=== PATIENT | male | born 1975 | race Two or more races ===

== ENCOUNTER 2023-05-19 07:47 | Outpatient (REF) | payer OTHER, SELFPAY ==
[2023-05-19 08:08] LABS: MANUAL DIFF FLAG NO
[2023-05-19 08:23] LABS: Basophils Percent Auto 0.2 % (0-2); Eosinophils Absolute Auto 0.2 X10*3/uL (0.0-0.4); Eosinophils Percent Auto 1.4 % (0-4); Hematocrit 40.7 % (42.0-52.0); Hemoglobin 13.1 g/dl (14.0-18.0); Imm Gran Abs Auto 0.06 X10*3/uL (0.00-0.03); Imm Gran Pct Auto 0.6 % (0.0-0.4); Lymphocytes Absolute Auto 2.7 X10*3/uL (1.2-4.9); Lymphocytes Percent Auto 26.1 % (20-40); Mean Corpuscular HGB Conc 32.2 g/dl (31.0-36.0); Mean Corpuscular Hemoglobin 27.3 pg (27.0-33.0); Mean Corpuscular Volume 84.8 fL (80.0-98.0); Mean Platelet Volume 9.4 fL (9.4-12.4); Monocytes Absolute Auto 0.6 X10*3/uL (0.1-1.2); Monocytes Percent Auto 5.9 % (2-11); Neutrophils Absolute Auto 6.9 x10*3/uL (2.0-8.3); Neutrophils Percent Auto 65.8 % (45-73); Platelet Count 303 X10*3/uL (160-400); Red Cell Distribution Width 14.8 % (11.0-16.0); White Blood Count 10.5 X10*3/uL (4.8-10.8)
[2023-05-19 09:29] LABS: Alanine Aminotransferase 15 U/L (0-40); Albumin Level 4.1 g/dL (3.5-5.0); Alkaline Phosphatase 114 U/L (39-117); Anion Gap 11 (12-20); Aspartate Amino Transferase 15 U/L (5-37); Bilirubin Total 0.3 mg/dL (0.0-1.0); Blood Urea Nitrogen 13 mg/dL (9-16); Calcium 9.1 mg/dL (8.4-10.2); Carbon Dioxide 29 mmol/L (22-29); Chloride 103 mmol/L (96-108); Estimated Glomerular Filt Rate > 60; Glucose Random 136 mg/dL (60-115); Potassium 4.3 mmol/L (3.3-5.1); Sodium 139 mmol/L (135-145); Total Protein 7.6 g/dL (6.5-8.0)
[2023-05-24 05:43] LABS: Clozapine (Clozaril) 347 mcg/L; Norclozapine 188 mcg/L (25-400)
== END 2023-05-19 07:48 | disposition home or self-care (01) ==
LOC: HO.LAB 07:47
PROVIDERS: Visit Provider Nurse Practitioner Psychiatric/Mental Health
DX: Z79.899 Other long term (current) drug therapy (principal)
CPT/HCPCS: 36415; 80053; 80159; 85025

== ENCOUNTER 2023-05-24 19:32 | Inpatient (IN) | payer OTHER, SELFPAY ==
--- NOTE | 2023-05-24 15:56 | P.EN_ITS ---
Event Note Date of Service: 05/24/23 Event Note: In [facility] ED, Pt had EKG with QTC 510, RBBB, left anterior fasicular block and bifasicular block; troponins were 5pg?ml (flat). discussed case with Dr snyder; discused ekg and troponins with Dr Munoz from cardiology. T/C [facility] ED Dr. Isis Jordan who stated pt had chest pain upon admission adn stated he was anxious; troponins and ekg done . no further cardiac symptoms; no SOB, chest pain and vitals were stable. Pt okay for psyc [facility] admission - will include CMP with Mg and repeat EKG for 418 am Time Spent With Patient Time: Total time managing care of this patient today ____ minutes.
[2023-05-24 20:00] VITALS: BP 138/82; PULSE 83; RESP 16; TEMP 36.6; O2SAT 95
[2023-05-24 21:45] VITALS: BP 122/72; PULSE 80
[2023-05-24] MEDS: Propranolol HCL 20 MG TABLET PO (21:45)
[2023-05-24] MEDS: cloZAPine 100 MG TABLET 300 MG PO (21:47)
[2023-05-24] MEDS: HaloperidoL 1 MG TABLET 4 MG PO (21:47)
[2023-05-24] MEDS: cephALEXin 500 MG CAPSULE PO (21:48)
[2023-05-24] MEDS: metFORMIN HCl ER 500 MG TAB.ER.24H 1000 MG PO (21:48)
[2023-05-24] MEDS: Benztropine Mesylate 0.5 MG TABLET PO (21:48)
[2023-05-24] MEDS: Atorvastatin Calcium 10 MG TABLET PO (21:49)
[2023-05-24 22:05] VITALS: BMI 41.2
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
--- NOTE | 2023-05-25 | ECG_ITS ---
Test Reason : check qtc Blood Pressure : / mmHG Vent. Rate : 083 BPM Atrial Rate : 083 BPM P-R Int : 152 ms QRS Dur : 154 ms QT Int : 404 ms P-R-T Axes : 041 -56 030 degrees QTc Int : 474 ms Normal sinus rhythm Right bundle branch block Left anterior fascicular block Bifascicular block Abnormal ECG When compared with ECG of 15-DEC-2018 12:46, (RBBB and left anterior fascicular block) has replaced Incomplete right bundle branch block - there is also artifact in prior EKG Referred By: Gregory Mg Electronically Signed By:SILVIA STUBBS
--- NOTE | 2023-05-25 00:24 | PC.ADMIT ---
Arcenio Garcia is a 47 yo male, admitted to M3 unit from [facility] on CV for treatment of SI and Schizoaffective disorder. He reports feeling anxious and has intrusive thoughts about hurting himself, denies any plan. He has medical history of HTN, Diabetes and GERD. Arcenio Garcia is A&O X4, calm and pleasant on approach. He denies SI/HI/AVH, affect is flat and mood is depressed. Patient denies using any substances, but TOX screen shows positive to Cocaine and THC. He states that I have have been sober and stop using drugs since when I was 18 yo . He reports being homeless for now d/t no bed in sober house after been d/c from respite on Monday. He was seen by the hospitalist but was sleeping, hence the hospitalist will come back tomorrow morning. Skin check done, Vital signs was stable and some release of information forms signed. Treatment plan and safety tools initiated but yet to be signed.
[2023-05-25] MEDS: HaloperidoL 1 MG TABLET 2 MG PO (06:36)
[2023-05-25 07:00] VITALS: BMI 40.6
[2023-05-25 08:00] VITALS: BP 112/58; PULSE 85; RESP 14; RESP 18; TEMP 36.3; TEMP 36.8; O2SAT 94
[2023-05-25] MEDS: metFORMIN HCl ER 500 MG TAB.ER.24H 1000 MG PO ×2 (09:02→20:34)
[2023-05-25] MEDS: glipiZIDE XL 10 MG TAB.ER.24 PO ×2 (09:02→18:00)
[2023-05-25] MEDS: Sertraline HCL 100 MG TABLET PO (09:02)
[2023-05-25] MEDS: Benztropine Mesylate 0.5 MG TABLET PO ×2 (09:03→20:34)
[2023-05-25] MEDS: Propranolol HCL 20 MG TABLET PO ×2 (09:03→20:34)
[2023-05-25] MEDS: cephALEXin 500 MG CAPSULE PO ×3 (09:03→20:34)
[2023-05-25 10:59] LABS: Neut%MD 66.8 %; Neutrophils Absolute Auto 6.8 x10*3/uL (2.0-8.3); WBCANC 10.2 X10*3/uL
[2023-05-25 11:21] LABS: Alanine Aminotransferase 19 U/L (0-40); Albumin Level 4.1 g/dL (3.5-5.0); Alkaline Phosphatase 110 U/L (39-117); Anion Gap 13 (12-20); Aspartate Amino Transferase 15 U/L (5-37); Bilirubin Direct 0.1 mg/dL (0.0-0.5); Bilirubin Total 0.3 mg/dL (0.0-1.0); Blood Urea Nitrogen 15 mg/dL (9-16); Calcium 9.6 mg/dL (8.4-10.2); Carbon Dioxide 26 mmol/L (22-29); Chloride 105 mmol/L (96-108); Creatinine Clr Calc Pharmacy 126.6; Estimated Glomerular Filt Rate > 60; Glucose Fasting 199 mg/dL (60-99); Magnesium 1.8 mg/dL (1.6-2.6); Potassium 4.2 mmol/L (3.3-5.1); Sodium 140 mmol/L (135-145); Total Protein 7.5 g/dL (6.5-8.0)
[2023-05-25 11:26] LABS: Estimated Average Glucose 154 mg/dL
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
[2023-05-25 19:45] VITALS: BP 121/61; PULSE 86; RESP 16; TEMP 36.8; O2SAT 93
[2023-05-25 20:00] VITALS: BP 121/61; PULSE 86; RESP 16; TEMP 36.8; O2SAT 93
[2023-05-25] MEDS: HaloperidoL 1 MG TABLET 4 MG PO (20:33)
[2023-05-25] MEDS: cloZAPine 100 MG TABLET 300 MG PO (20:33)
[2023-05-25 20:34] VITALS: BP 121/61; PULSE 86
[2023-05-25] MEDS: Atorvastatin Calcium 10 MG TABLET PO (20:34)
[2023-05-25 21:38] LABS: Glucose, Whole Blood 219 mg/dL (60-115)
[2023-05-26] MEDS: cephALEXin 500 MG CAPSULE PO ×4 (03:35→21:11)
[2023-05-26] MEDS: HaloperidoL 1 MG TABLET 2 MG PO (06:29)
[2023-05-26 08:05] VITALS: BP 169/121; PULSE 88; RESP 18; TEMP 36.6; O2SAT 95
[2023-05-26 08:28] LABS: Glucose, Whole Blood 99 mg/dL (60-115)
[2023-05-26 08:41] VITALS: BP 115/68; PULSE 78; RESP 16; O2SAT 97
[2023-05-26] MEDS: Benztropine Mesylate 0.5 MG TABLET PO ×2 (08:42→21:11)
[2023-05-26] MEDS: metFORMIN HCl ER 500 MG TAB.ER.24H 1000 MG PO ×2 (08:42→21:11)
[2023-05-26 08:43] VITALS: BP 115/68; PULSE 78
[2023-05-26] MEDS: Propranolol HCL 20 MG TABLET PO ×2 (08:43→21:11)
[2023-05-26] MEDS: Sertraline HCL 100 MG TABLET PO (08:44)
[2023-05-26] MEDS: glipiZIDE XL 10 MG TAB.ER.24 PO ×2 (08:45→17:32)
--- NOTE | 2023-05-26 10:09 | P.PNPSI_ITS ---
Subjective Subjective Date of Service: 05/26/23 Reason For Visit: psychosis Subjective Notes: 3 Day Healthcare Proxy: No Guardianship: No Medical Problems Affecting Mental Status: No Interim History: 47-year-old male with a PMH significant for?HTN, HLD, tcv-tvkbzzp-wxlwcyccp type 2 diabetes, and schizoaffective disorder who is admitted to M3 psychiatry unit for increasing anxiety and depression with vague SI. Patient apparently was discharged earlier from respite on 05/19/2023. First attempted to go to a sober house but there was no room for him. Since then has been on the streets. A Pt signed 3 day notice and wants to leave; he is under the impression that a respite has a bed for him. he reports SI upon admission but able to contract for safety and feel safe on unit; no HI; no aggression; he denies voices. Medication Compliance: Yes Side effects from medications: No Attending Groups: Yes Review of Systems Acute medical concerns: No Medical Review of Systems: unchanged Review of Systems Review of Systems Patient has no acute medical complaints Mental Status Exam Mental Status Exam Patient Appearance: Appropriate Patient Orientation: Person, Place and Time Level of Consciousness: Awake Patient Behavior: Appropriate Mood Description: Withdrawn Affect Description: Constricted Patient Cognition Impaired: Yes Ability to Follow Directions: Fair Speech Pattern: Clear Judgement: Fair Diagnostics Vital Signs (24Hr): Vital Signs - 24 hr 05/25/23 19:45 05/25/23 20:00 05/25/23 20:34 Temperature 98.3 F 98.3 F Pulse Rate 86 86 86 Respiratory Rate 16 16 Blood Pressure 121/61 121/61 121/61 Pulse Oximetry 93 93 Oxygen Delivery Method Room Air Room Air 05/26/23 08:05 05/26/23 08:41 05/26/23 08:43 Temperature 97.9 F Pulse Rate 88 78 78 Respiratory Rate 18 16 Blood Pressure 169/121 H 115/68 115/68 Pulse Oximetry 95 97 Oxygen Delivery Method Room Air Room Air BMI result Body Mass Index 40.6 Labs 05/25/23 10:42 Labs: Laboratory Results - last 48 hr 05/25/23 05/25/23 05/26/23 10:42 21:32 08:24 Absolute Neuts (auto) 6.8 Sodium 140 Potassium 4.2 Chloride 105 Carbon Dioxide 26 Anion Gap 13 BUN 15 Creatinine 0.80 Estim Creat Clear Calc 126.6 Estimated GFR > 60 POC Glucose 219 H 99 Fasting Glucose 199 H Estimat Average Glucose 154 Hemoglobin A1c % 7.0 H Calcium 9.6 Magnesium 1.8 Total Bilirubin 0.3 Direct Bilirubin 0.1 AST 15 ALT 19 Alkaline Phosphatase 110 Total Protein 7.5 Albumin 4.1 Medications Medications Current Medications Acetaminophen (Acetaminophen 325 Mg Tablet) 650 mg PO Q6H PRN PRN Reason: Headache/Pain Mild Scale (1-3) Al Hydroxide/Mg Hydroxide (Magnesium Hydrox/Alum Hydrox 30 Ml Oral.Susp) 30 ml PO Q6H PRN PRN Reason: Heartburn/Nausea Atorvastatin Calcium (Atorvastatin Calcium 10 Mg Tablet) 10 mg PO BEDTIME [facility] Last Admin: 05/25/23 20:34 Dose: 10 mg Benztropine Mesylate (Benztropine Mesylate 0.5 Mg Tablet) 0.5 mg PO BID [facility] Last Admin: 05/26/23 08:42 Dose: 0.5 mg Cephalexin HCl (Cephalexin 500 Mg Capsule) 500 mg PO Q6H [facility] Stop: 05/29/23 13:00 Last Admin: 05/26/23 08:44 Dose: 500 mg Clozapine (Clozapine 100 Mg Tablet) 300 mg PO BEDTIME [facility] Last Admin: 05/25/23 20:33 Dose: 300 mg Glipizide (Glipizide Xl 10 Mg Tab.Er.24) 10 mg PO BIDWM [facility] Last Admin: 05/26/23 08:45 Dose: 10 mg Haloperidol (Haloperidol 1 Mg Tablet) 4 mg PO BEDTIME [facility] Last Admin: 05/25/23 20:33 Dose: 4 mg Haloperidol (Haloperidol 1 Mg Tablet) 2 mg PO DAILY@0600 [facility] Last Admin: 05/26/23 06:29 Dose: 2 mg Magnesium Hydroxide (Milk Of Magnesia 30 Ml Oral.Susp) 30 ml PO DAILY PRN PRN Reason: Constipation Metformin HCl (Metformin Hcl Er 500 Mg Tab.Er.24h) 1,000 mg PO BID [facility] Last Admin: 05/26/23 08:42 Dose: 1,000 mg Propranolol HCl (Propranolol Hcl 20 Mg Tablet) 20 mg PO BID [facility]; Protocol Last Admin: 05/26/23 08:43 Dose: 20 mg Sertraline HCl (Sertraline Hcl 100 Mg Tablet) 100 mg PO DAILY [facility] Last Admin: 05/26/23 08:44 Dose: 100 mg Trazodone HCl (Trazodone Hcl 50 Mg Tablet) 50 mg PO BEDTIME MRX1 PRN PRN Reason: Insomnia Allergies Allergies Allergy/AdvReac Type Severity Reaction Status Date / Time No Known Allergies Allergy Unverified 10/24/19 19:30 [No Known Allergies*] Assessment & Plan Assessment & Plan (1) Schizophrenia: Qualifiers: Schizophrenia type: disorganized schizophrenia Qualified Code(s): F20.1 - Disorganized schizophrenia Status: Acute Code(s): F20.9 - Schizophrenia, unspecified Plan Pt is a 47-year-old male with a PMH significant for?HTN, HLD, hep-lkibqmt-ttywdwdac type 2 diabetes, and schizoaffective disorder who is admitted to psychiatry unit for increasing anxiety and depression with vague SI. Patient apparently was discharged earlier from respite on 05/19/2023. First attempted to go to a sober house but there was no room for him. Since then has been on the streets. At [facility] ED patient complained of chest tightness and difficulty breathing, the workup there was negative. EKG showed new RBBB but no ischemic changes. Serial troponins flat and WNL. Patient's UA came back positive for UTI, and was started on Keflex on 05/22/2023. Plan: pt signed 3 day notice up on Monday 15 min checks continue home meds clozaril protocol collateral info discharge planning with team Per medical Hospital consult : UTI Continue Keflex HTN Continue propranolol HLD Continue atorvastatin Pri-ywvhxhe-jofgxkiow type 2 diabetes Continue metformin, glipizide Encouraged diabetic diet and snacking New RBBB Pt asymptomatic, serial troponins flat and WNL, EKG without ischemic changes No further workup indicated at this time Follow-up outpatient PCP Patient educated on: diagnosis, medication risk/benefits and therapeutic strategies Informed Consent: understands and further education needed Reason for continued inpatient stay Substantial Risk for: inability to function Time Spent With Patient Time: Total time managing care of this patient today ____ minutes.
[2023-05-26 21:00] VITALS: BP 121/60; PULSE 95; RESP 14; TEMP 36.9; O2SAT 96
[2023-05-26] MEDS: cloZAPine 100 MG TABLET 300 MG PO (21:09)
[2023-05-26] MEDS: HaloperidoL 1 MG TABLET 4 MG PO (21:10)
[2023-05-26] MEDS: Atorvastatin Calcium 10 MG TABLET PO (21:10)
[2023-05-26 21:16] LABS: Glucose, Whole Blood 262 mg/dL (60-115)
[2023-05-27] MEDS: cephALEXin 500 MG CAPSULE PO ×4 (03:37→20:48)
[2023-05-27] MEDS: HaloperidoL 1 MG TABLET 2 MG PO (06:31)
[2023-05-27 07:45] LABS: Glucose, Whole Blood 150 mg/dL (60-115)
[2023-05-27 08:00] VITALS: BP 144/63; PULSE 79; RESP 16; TEMP 36.6; O2SAT 97
[2023-05-27] MEDS: Benztropine Mesylate 0.5 MG TABLET PO ×2 (08:30→20:53)
[2023-05-27] MEDS: metFORMIN HCl ER 500 MG TAB.ER.24H 1000 MG PO ×2 (08:30→20:47)
[2023-05-27] MEDS: glipiZIDE XL 10 MG TAB.ER.24 PO ×2 (08:30→17:01)
[2023-05-27] MEDS: Sertraline HCL 100 MG TABLET PO (08:30)
[2023-05-27 08:31] VITALS: BP 144/63; PULSE 79
[2023-05-27] MEDS: Propranolol HCL 20 MG TABLET PO ×2 (08:31→20:48)
--- NOTE | 2023-05-27 09:29 | P.PNPSI_ITS ---
Subjective Subjective Date of Service: 05/27/23 Reason For Visit: psychosis Subjective Notes: Conditional Voluntary Interim History: Patient was seen and discussed in rounds today. Records and plans were continues to be anxious, withdrawn. Affect is flat. Being treated for UTI. He is preoccupied with his housing and being homeless. No SI. No complaints or side effects. No AVH. No changes were made today Review of Systems Review of Systems Yes all other systems are reviewed and are negative Mental Status Exam Mental Status Exam Narrative: In today's visit he is alert, oriented and pleasant. Soft-spoken speech. Moderate eye contact. Affect is blunted. No acute signs of psychosis, delusions. Cognitively intact. No abnormalities of gait. Able to move all limbs. No SI. Judgment is intact Diagnostics Vital Signs (24Hr): Vital Signs - 24 hr 05/26/23 21:00 05/27/23 08:00 05/27/23 08:31 Temperature 98.4 F 97.8 F Pulse Rate 95 79 79 Respiratory Rate 14 16 Blood Pressure 121/60 144/63 H 144/63 H Pulse Oximetry 96 97 Oxygen Delivery Method Room Air Room Air BMI result Body Mass Index 40.6 Labs 05/25/23 10:42 Labs: Laboratory Results - last 48 hr 05/25/23 05/25/23 05/26/23 10:42 21:32 08:24 Absolute Neuts (auto) 6.8 Sodium 140 Potassium 4.2 Chloride 105 Carbon Dioxide 26 Anion Gap 13 BUN 15 Creatinine 0.80 Estim Creat Clear Calc 126.6 Estimated GFR > 60 POC Glucose 219 H 99 Fasting Glucose 199 H Estimat Average Glucose 154 Hemoglobin A1c % 7.0 H Calcium 9.6 Magnesium 1.8 Total Bilirubin 0.3 Direct Bilirubin 0.1 AST 15 ALT 19 Alkaline Phosphatase 110 Total Protein 7.5 Albumin 4.1 05/26/23 05/27/23 21:08 07:40 Absolute Neuts (auto) Sodium Potassium Chloride Carbon Dioxide Anion Gap BUN Creatinine Estim Creat Clear Calc Estimated GFR POC Glucose 262 H 150 H Fasting Glucose Estimat Average Glucose Hemoglobin A1c % Calcium Magnesium Total Bilirubin Direct Bilirubin AST ALT Alkaline Phosphatase Total Protein Albumin Medications Medications Current Medications Acetaminophen (Acetaminophen 325 Mg Tablet) 650 mg PO Q6H PRN PRN Reason: Headache/Pain Mild Scale (1-3) Al Hydroxide/Mg Hydroxide (Magnesium Hydrox/Alum Hydrox 30 Ml Oral.Susp) 30 ml PO Q6H PRN PRN Reason: Heartburn/Nausea Atorvastatin Calcium (Atorvastatin Calcium 10 Mg Tablet) 10 mg PO BEDTIME [facility] Last Admin: 05/26/23 21:10 Dose: 10 mg Benztropine Mesylate (Benztropine Mesylate 0.5 Mg Tablet) 0.5 mg PO BID [facility] Last Admin: 05/27/23 08:30 Dose: 0.5 mg Cephalexin HCl (Cephalexin 500 Mg Capsule) 500 mg PO Q6H [facility] Stop: 05/29/23 13:00 Last Admin: 05/27/23 08:31 Dose: 500 mg Clozapine (Clozapine 100 Mg Tablet) 300 mg PO BEDTIME [facility] Last Admin: 05/26/23 21:09 Dose: 300 mg Glipizide (Glipizide Xl 10 Mg Tab.Er.24) 10 mg PO BIDWM [facility] Last Admin: 05/27/23 08:30 Dose: 10 mg Haloperidol (Haloperidol 1 Mg Tablet) 4 mg PO BEDTIME [facility] Last Admin: 05/26/23 21:10 Dose: 4 mg Haloperidol (Haloperidol 1 Mg Tablet) 2 mg PO DAILY@0600 [facility] Last Admin: 05/27/23 06:31 Dose: 2 mg Magnesium Hydroxide (Milk Of Magnesia 30 Ml Oral.Susp) 30 ml PO DAILY PRN PRN Reason: Constipation Metformin HCl (Metformin Hcl Er 500 Mg Tab.Er.24h) 1,000 mg PO BID [facility] Last Admin: 05/27/23 08:30 Dose: 1,000 mg Propranolol HCl (Propranolol Hcl 20 Mg Tablet) 20 mg PO BID [facility]; Protocol Last Admin: 05/27/23 08:31 Dose: 20 mg Sertraline HCl (Sertraline Hcl 100 Mg Tablet) 100 mg PO DAILY [facility] Last Admin: 05/27/23 08:30 Dose: 100 mg Trazodone HCl (Trazodone Hcl 50 Mg Tablet) 50 mg PO BEDTIME MRX1 PRN PRN Reason: Insomnia Allergies Allergies Allergy/AdvReac Type Severity Reaction Status Date / Time No Known Allergies Allergy Unverified 10/24/19 19:30 [No Known Allergies*] Assessment & Plan Assessment & Plan (1) Schizophrenia: Qualifiers: Schizophrenia type: disorganized schizophrenia Qualified Code(s): F20.1 - Disorganized schizophrenia Status: Acute Code(s): F20.9 - Schizophrenia, unspecified Plan Pt is a 47-year-old male with a PMH significant for?HTN, HLD, [id number] type 2 diabetes, and schizoaffective disorder who is admitted to [facility] psychiatry unit for increasing anxiety and depression with vague SI. Patient apparently was discharged earlier from respite on 05/19/2023. First attempted to go to a sober house but there was no room for him. Since then has been on the streets. At [facility] ED patient complained of chest tightness and difficulty breathing, the workup there was negative. EKG showed new RBBB but no ischemic changes. Serial troponins flat and WNL. Patient's UA came back positive for UTI, and was started on Keflex on 05/22/2023. Plan: pt signed 3 day notice up on Monday 15 min checks continue home meds clozaril protocol collateral info discharge planning with team Per medical Hospital consult : UTI Continue Keflex HTN Continue propranolol HLD Continue atorvastatin [id number] type 2 diabetes Continue metformin, glipizide Encouraged diabetic diet and snacking New RBBB Pt asymptomatic, serial troponins flat and WNL, EKG without ischemic changes No further workup indicated at this time Follow-up outpatient PCP 05/27/2023: Continue current regimen and plans Reason for continued inpatient stay Substantial Risk for: med/psych decompensation Time Spent With Patient Time: Total time managing care of this patient today ____ minutes.
[2023-05-27 20:20] VITALS: BP 155/73; PULSE 93; RESP 16; TEMP 36.5; O2SAT 96
[2023-05-27] MEDS: cloZAPine 100 MG TABLET 300 MG PO (20:46)
[2023-05-27] MEDS: HaloperidoL 1 MG TABLET 4 MG PO (20:46)
[2023-05-27] MEDS: Atorvastatin Calcium 10 MG TABLET PO (20:47)
[2023-05-27 20:52] LABS: Glucose, Whole Blood 280 mg/dL (60-115)
[2023-05-28] MEDS: cephALEXin 500 MG CAPSULE PO ×4 (02:49→21:21)
[2023-05-28] MEDS: HaloperidoL 1 MG TABLET 2 MG PO (06:36)
[2023-05-28 07:50] LABS: Glucose, Whole Blood 148 mg/dL (60-115)
[2023-05-28 08:05] VITALS: BP 157/74; PULSE 79; RESP 14; TEMP 36.9; O2SAT 93
[2023-05-28 08:54] VITALS: BP 157/74; PULSE 79
[2023-05-28] MEDS: Benztropine Mesylate 0.5 MG TABLET PO ×2 (08:54→21:21)
[2023-05-28] MEDS: Sertraline HCL 100 MG TABLET PO (08:54)
[2023-05-28] MEDS: glipiZIDE XL 10 MG TAB.ER.24 PO ×2 (08:54→16:57)
[2023-05-28] MEDS: Propranolol HCL 20 MG TABLET PO ×2 (08:54→21:19)
[2023-05-28] MEDS: metFORMIN HCl ER 500 MG TAB.ER.24H 1000 MG PO ×2 (09:20→21:20)
--- NOTE | 2023-05-28 09:28 | HO.PSYCHPN ---
Subjective Subjective Date of Service: 05/28/23 Reason For Visit: psychosis Subjective Notes: Conditional Voluntary Interim History: Patient was seen and discussed in rounds today. Records and plans were reviewed. He is feeling ?better?. No SI. No AVH. Haldol 2 mg from 06:00 was changed to 08:00. He is social and interactive. Eating and sleeping well. No other changes were made today Review of Systems Review of Systems Yes all other systems are reviewed and are negative Mental Status Exam Mental Status Exam Narrative: In today's visit he is alert, oriented and pleasant. Soft-spoken speech. Moderate eye contact. Affect is appropriate and more varied. No acute signs of psychosis, delusions. Cognitively intact. No abnormalities of gait. Able to move all limbs. No SI. Judgment is intact Diagnostics Vital Signs (24Hr): Vital Signs - 24 hr 05/27/23 20:20 05/28/23 08:05 05/28/23 08:54 Temperature 97.7 F 98.4 F Pulse Rate 93 79 79 Respiratory Rate 16 14 Blood Pressure 155/73 H 157/74 H 157/74 H Pulse Oximetry 96 93 Oxygen Delivery Method Room Air Room Air BMI result Body Mass Index 40.6 Labs 05/25/23 10:42 Labs: Laboratory Results - last 48 hr 05/26/23 05/27/23 05/27/23 21:08 07:40 20:45 POC Glucose 262 H 150 H 280 H 05/28/23 07:39 POC Glucose 148 H Medications Medications Current Medications Acetaminophen (Acetaminophen 325 Mg Tablet) 650 mg PO Q6H PRN PRN Reason: Headache/Pain Mild Scale (1-3) Al Hydroxide/Mg Hydroxide (Magnesium Hydrox/Alum Hydrox 30 Ml Oral.Susp) 30 ml PO Q6H PRN PRN Reason: Heartburn/Nausea Atorvastatin Calcium (Atorvastatin Calcium 10 Mg Tablet) 10 mg PO BEDTIME [facility] Last Admin: 05/27/23 20:47 Dose: 10 mg Benztropine Mesylate (Benztropine Mesylate 0.5 Mg Tablet) 0.5 mg PO BID [facility] Last Admin: 05/28/23 08:54 Dose: 0.5 mg Cephalexin HCl (Cephalexin 500 Mg Capsule) 500 mg PO Q6H [facility] Stop: 05/29/23 13:00 Last Admin: 05/28/23 08:54 Dose: 500 mg Clozapine (Clozapine 100 Mg Tablet) 300 mg PO BEDTIME [facility] Last Admin: 05/27/23 20:46 Dose: 300 mg Glipizide (Glipizide Xl 10 Mg Tab.Er.24) 10 mg PO BIDWM [facility] Last Admin: 05/28/23 08:54 Dose: 10 mg Haloperidol (Haloperidol 1 Mg Tablet) 4 mg PO BEDTIME [facility] Last Admin: 05/27/23 20:46 Dose: 4 mg Haloperidol (Haloperidol 1 Mg Tablet) 2 mg PO DAILY@0600 [facility] Last Admin: 05/28/23 06:36 Dose: 2 mg Magnesium Hydroxide (Milk Of Magnesia 30 Ml Oral.Susp) 30 ml PO DAILY PRN PRN Reason: Constipation Metformin HCl (Metformin Hcl Er 500 Mg Tab.Er.24h) 1,000 mg PO BID [facility] Last Admin: 05/28/23 09:20 Dose: 1,000 mg Propranolol HCl (Propranolol Hcl 20 Mg Tablet) 20 mg PO BID [facility]; Protocol Last Admin: 05/28/23 08:54 Dose: 20 mg Sertraline HCl (Sertraline Hcl 100 Mg Tablet) 100 mg PO DAILY [facility] Last Admin: 05/28/23 08:54 Dose: 100 mg Trazodone HCl (Trazodone Hcl 50 Mg Tablet) 50 mg PO BEDTIME MRX1 PRN PRN Reason: Insomnia Allergies Allergies Allergy/AdvReac Type Severity Reaction Status Date / Time No Known Allergies Allergy Unverified 10/24/19 19:30 [No Known Allergies*] Assessment & Plan Assessment & Plan (1) Schizophrenia: Qualifiers: Schizophrenia type: disorganized schizophrenia Qualified Code(s): F20.1 - Disorganized schizophrenia Status: Acute Code(s): F20.9 - Schizophrenia, unspecified Plan Pt is a 47-year-old male with a PMH significant for?HTN, HLD, jer-tfwlhxn-tjwlutfol type 2 diabetes, and schizoaffective disorder who is admitted to psychiatry unit for increasing anxiety and depression with vague SI. Patient apparently was discharged earlier from respite on 05/19/2023. First attempted to go to a sober house but there was no room for him. Since then has been on the streets. At [facility] ED patient complained of chest tightness and difficulty breathing, the workup there was negative. EKG showed new RBBB but no ischemic changes. Serial troponins flat and WNL. Patient's UA came back positive for UTI, and was started on Keflex on 05/22/2023. Plan: pt signed 3 day notice up on Monday 15 min checks continue home meds clozaril protocol collateral info discharge planning with team Per medical Hospital consult : UTI Continue Keflex HTN Continue propranolol HLD Continue atorvastatin Wgm-aicumsq-yqwmrftfa type 2 diabetes Continue metformin, glipizide Encouraged diabetic diet and snacking New RBBB Pt asymptomatic, serial troponins flat and WNL, EKG without ischemic changes No further workup indicated at this time Follow-up outpatient PCP 05/27/2023: Continue current regimen and plans 05/28/2023: Continue current regimen and plans Reason for continued inpatient stay Substantial Risk for: med/psych decompensation Time Spent With Patient Time: Total time managing care of this patient today ____ minutes.
[2023-05-28 20:00] VITALS: BP 130/54; PULSE 91; RESP 15; TEMP 36.8; O2SAT 95
[2023-05-28 21:19] VITALS: BP 130/54; PULSE 91
[2023-05-28] MEDS: HaloperidoL 1 MG TABLET 4 MG PO (21:19)
[2023-05-28] MEDS: Atorvastatin Calcium 10 MG TABLET PO (21:19)
[2023-05-28] MEDS: cloZAPine 100 MG TABLET 300 MG PO (21:20)
[2023-05-29] MEDS: cephALEXin 500 MG CAPSULE PO ×2 (04:07→08:13)
[2023-05-29 04:58] LABS: Clozapine (Clozaril) 360 mcg/L; Norclozapine 217 mcg/L (25-400)
[2023-05-29 07:58] LABS: Glucose, Whole Blood 130 mg/dL (60-115)
[2023-05-29 08:05] VITALS: BP 142/64; PULSE 78; RESP 14; TEMP 36.7; O2SAT 92
[2023-05-29] MEDS: Sertraline HCL 100 MG TABLET PO (08:12)
[2023-05-29] MEDS: metFORMIN HCl ER 500 MG TAB.ER.24H 1000 MG PO ×2 (08:12→20:17)
[2023-05-29 08:13] VITALS: BP 142/64; PULSE 78
[2023-05-29] MEDS: Benztropine Mesylate 0.5 MG TABLET PO ×2 (08:13→20:18)
[2023-05-29] MEDS: Propranolol HCL 20 MG TABLET PO ×2 (08:13→20:18)
[2023-05-29] MEDS: HaloperidoL 1 MG TABLET 2 MG PO (08:14)
[2023-05-29] MEDS: glipiZIDE XL 10 MG TAB.ER.24 PO ×2 (09:06→17:30)
--- NOTE | 2023-05-29 10:50 | PC.NURSE ---
Patient declined need for nicotine replacement therapy on this date.
--- NOTE | 2023-05-29 15:38 | HO.PSYCHPN ---
Subjective Subjective Date of Service: 05/29/23 Reason For Visit: psychosis Interim History: no issues. planning to DC weds. feeling improved from admission. per staff, 3-day up 05/30. bright affect. POC BID. taking meds. pleasant. denies anx/dep. isolative. c/o racing thoughts. slept about 8 hours. Mental Status Exam Mental Status Exam Narrative: alert, oriented and pleasant. Soft-spoken speech. Moderate eye contact. Affect is appropriate and more varied. No acute signs of psychosis, delusions. Cognitively intact. No abnormalities of gait. Able to move all limbs. No SI. Judgment is intact Diagnostics Vital Signs (24Hr): Vital Signs - 24 hr 05/28/23 20:00 05/28/23 21:19 05/29/23 08:05 Temperature 98.2 F 98.0 F Pulse Rate 91 91 78 Respiratory Rate 15 14 Blood Pressure 130/54 L 130/54 L 142/64 H Pulse Oximetry 95 92 Oxygen Delivery Method Room Air Room Air 05/29/23 08:13 Temperature Pulse Rate 78 Respiratory Rate Blood Pressure 142/64 H Pulse Oximetry Oxygen Delivery Method BMI result Body Mass Index 40.6 Labs 05/25/23 10:42 Labs: Laboratory Results - last 48 hr 05/25/23 05/27/23 05/28/23 10:42 20:45 07:39 POC Glucose 280 H 148 H Clozapine 360 Norclozapine 217 05/29/23 07:52 POC Glucose 130 H Clozapine Norclozapine Medications Medications Current Medications Acetaminophen (Acetaminophen 325 Mg Tablet) 650 mg PO Q6H PRN PRN Reason: Headache/Pain Mild Scale (1-3) Al Hydroxide/Mg Hydroxide (Magnesium Hydrox/Alum Hydrox 30 Ml Oral.Susp) 30 ml PO Q6H PRN PRN Reason: Heartburn/Nausea Atorvastatin Calcium (Atorvastatin Calcium 10 Mg Tablet) 10 mg PO BEDTIME [facility] Last Admin: 05/28/23 21:19 Dose: 10 mg Benztropine Mesylate (Benztropine Mesylate 0.5 Mg Tablet) 0.5 mg PO BID [facility] Last Admin: 05/29/23 08:13 Dose: 0.5 mg Clozapine (Clozapine 100 Mg Tablet) 300 mg PO BEDTIME [facility] Last Admin: 05/28/23 21:20 Dose: 300 mg Glipizide (Glipizide Xl 10 Mg Tab.Er.24) 10 mg PO BIDWM [facility] Last Admin: 05/29/23 09:06 Dose: 10 mg Haloperidol (Haloperidol 1 Mg Tablet) 4 mg PO BEDTIME [facility] Last Admin: 05/28/23 21:19 Dose: 4 mg Haloperidol (Haloperidol 1 Mg Tablet) 2 mg PO DAILY [facility] Last Admin: 05/29/23 08:14 Dose: 2 mg Magnesium Hydroxide (Milk Of Magnesia 30 Ml Oral.Susp) 30 ml PO DAILY PRN PRN Reason: Constipation Metformin HCl (Metformin Hcl Er 500 Mg Tab.Er.24h) 1,000 mg PO BID [facility] Last Admin: 05/29/23 08:12 Dose: 1,000 mg Propranolol HCl (Propranolol Hcl 20 Mg Tablet) 20 mg PO BID [facility]; Protocol Last Admin: 05/29/23 08:13 Dose: 20 mg Sertraline HCl (Sertraline Hcl 100 Mg Tablet) 100 mg PO DAILY [facility] Last Admin: 05/29/23 08:12 Dose: 100 mg Trazodone HCl (Trazodone Hcl 50 Mg Tablet) 50 mg PO BEDTIME MRX1 PRN PRN Reason: Insomnia Allergies Allergies Allergy/AdvReac Type Severity Reaction Status Date / Time No Known Allergies Allergy Unverified 10/24/19 19:30 [No Known Allergies*] Assessment & Plan Assessment & Plan (1) Schizophrenia: Qualifiers: Schizophrenia type: disorganized schizophrenia Qualified Code(s): F20.1 - Disorganized schizophrenia Status: Acute Code(s): F20.9 - Schizophrenia, unspecified Plan Pt is a 47-year-old male with a PMH significant for?HTN, HLD, olm-lunwpcf-hkqfetlts type 2 diabetes, and schizoaffective disorder who is admitted to psychiatry unit for increasing anxiety and depression with vague SI. Patient apparently was discharged earlier from respite on 05/19/2023. First attempted to go to a sober house but there was no room for him. Since then has been on the streets. At [facility] ED patient complained of chest tightness and difficulty breathing, the workup there was negative. EKG showed new RBBB but no ischemic changes. Serial troponins flat and WNL. Patient's UA came back positive for UTI, and was started on Keflex on 05/22/2023. Plan: pt signed 3 day notice up on Monday 15 min checks continue home meds clozaril protocol collateral info discharge planning with team Per medical Hospital consult : UTI Continue Keflex HTN Continue propranolol HLD Continue atorvastatin Zxn-lxatell-vzaomphgx type 2 diabetes Continue metformin, glipizide Encouraged diabetic diet and snacking New RBBB Pt asymptomatic, serial troponins flat and WNL, EKG without ischemic changes No further workup indicated at this time Follow-up outpatient PCP 05/27/2023: Continue current regimen and plans 05/28/2023: Continue current regimen and plans 05/28: stable, improved. continue current regimen. planning to discharge weds to longterm. Reason for continued inpatient stay Substantial Risk for: inability to function and rapid decompensation Time Spent With Patient Time: Total time managing care of this patient today __25__ minutes.
[2023-05-29 20:00] VITALS: BP 136/63; PULSE 91; RESP 18; TEMP 36.5; O2SAT 96
[2023-05-29 20:18] VITALS: BP 136/63; PULSE 88
[2023-05-29] MEDS: HaloperidoL 1 MG TABLET 4 MG PO (20:18)
[2023-05-29] MEDS: Atorvastatin Calcium 10 MG TABLET PO (20:18)
[2023-05-29] MEDS: cloZAPine 100 MG TABLET 300 MG PO (20:20)
[2023-05-29 20:39] LABS: Glucose, Whole Blood 338 mg/dL (60-115)
[2023-05-30 08:00] VITALS: BP 195/104; PULSE 105; RESP 16; TEMP 36.8; O2SAT 97
[2023-05-30 08:24] LABS: Glucose, Whole Blood 153 mg/dL (60-115)
[2023-05-30 08:50] VITALS: BP 122/53; PULSE 86; O2SAT 97
[2023-05-30] MEDS: glipiZIDE XL 10 MG TAB.ER.24 PO ×2 (09:05→16:49)
[2023-05-30] MEDS: Sertraline HCL 100 MG TABLET PO (09:05)
[2023-05-30 09:06] VITALS: BP 122/53; PULSE 86
[2023-05-30] MEDS: Benztropine Mesylate 0.5 MG TABLET PO ×2 (09:06→20:14)
[2023-05-30] MEDS: Propranolol HCL 20 MG TABLET PO ×2 (09:06→20:12)
[2023-05-30] MEDS: metFORMIN HCl ER 500 MG TAB.ER.24H 1000 MG PO ×2 (09:07→20:14)
[2023-05-30] MEDS: HaloperidoL 1 MG TABLET 2 MG PO (09:07)
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
[2023-05-30 11:24] LABS: COVID-19 Test Negative (Negative); IDNOW Serial# 58CA691E
[2023-05-30 20:00] VITALS: BP 137/68; PULSE 86; RESP 16; TEMP 36.6; O2SAT 96
[2023-05-30] MEDS: HaloperidoL 1 MG TABLET 4 MG PO (20:11)
[2023-05-30 20:12] VITALS: BP 137/68; PULSE 86
[2023-05-30] MEDS: cloZAPine 100 MG TABLET 300 MG PO (20:12)
[2023-05-30] MEDS: Atorvastatin Calcium 10 MG TABLET PO (20:18)
[2023-05-30 21:02] LABS: Glucose, Whole Blood 249 mg/dL (60-115)
[2023-05-31 07:49] VITALS: BP 155/90; PULSE 90; RESP 14; TEMP 36.5; O2SAT 97
[2023-05-31 08:10] LABS: Glucose, Whole Blood 133 mg/dL (60-115)
[2023-05-31 08:16] VITALS: BP 155/90; PULSE 90
[2023-05-31] MEDS: Propranolol HCL 20 MG TABLET PO (08:16)
[2023-05-31] MEDS: Benztropine Mesylate 0.5 MG TABLET PO (08:16)
[2023-05-31] MEDS: glipiZIDE XL 10 MG TAB.ER.24 PO (08:16)
[2023-05-31] MEDS: Sertraline HCL 100 MG TABLET PO (08:16)
[2023-05-31] MEDS: metFORMIN HCl ER 500 MG TAB.ER.24H 1000 MG PO (08:16)
[2023-05-31] MEDS: HaloperidoL 1 MG TABLET 2 MG PO (08:16)
== END 2023-05-31 11:40 | disposition home or self-care (01) | DRG 750 ==
PROVIDERS: Clinical Nurse Specialist Psychiatric/Mental Health; Admitting Provider Psychiatry & Neurology Psychiatry; Visit Provider Psychiatry & Neurology Psychiatry
DX: F20.9 Schizophrenia, unspecified (principal); R45.851 Suicidal ideations; E11.9 Type 2 diabetes mellitus without complications; I10 Essential (primary) hypertension; E78.5 Hyperlipidemia, unspecified; Z59.02 Unsheltered homelessness; F17.210 Nicotine dependence, cigarettes, uncomplicated; N39.0 Urinary tract infection, site not specified; Z71.6 Tobacco abuse counseling; I45.10 Unspecified right bundle-branch block; Z20.822 Contact with and (suspected) exposure to COVID-19; Z79.84 Long term (current) use of oral hypoglycemic drugs; Z79.899 Other long term (current) drug therapy
CPT/HCPCS: 36415; 80053; 80076; 80159; 82947; 83036; 83735; 85048; 87635; 93005

== ENCOUNTER 2023-05-24 19:32 | Outpatient (BNV) | payer OTHER, SELFPAY | END 2023-05-25 18:55 | PROVIDERS: Admitting Provider Psychiatry & Neurology Psychiatry; Visit Provider Internal Medicine | DX: R94.31 Abnormal electrocardiogram [ECG] [EKG] (principal) | CPT/HCPCS: 93010 ==

== ENCOUNTER → 2023-05-24 19:32 | Outpatient (BNV) | payer OTHER, SELFPAY | PROVIDERS: Admitting Provider Psychiatry & Neurology Psychiatry; Visit Provider Student in an Organized Health Care Education/Training Program | DX: Z02.2 Encounter for examination for admission to residential institution (principal) | CPT/HCPCS: 99429 ==

== ENCOUNTER → 2023-05-24 | Outpatient (BNV) | payer OTHER, SELFPAY | PROVIDERS: Admitting Provider Psychiatry & Neurology Psychiatry; Visit Provider Clinical Nurse Specialist Psychiatric/Mental Health | DX: F20.1 Disorganized schizophrenia (principal) | CPT/HCPCS: 90792; 99231; 99232; 99239; 99499 ==

== ENCOUNTER 2024-04-19 10:07 | Inpatient (IN) | payer OTHER, SELFPAY ==
[2024-04-19 10:17] VITALS: BP 134/70; PULSE 99; RESP 16; TEMP 36.9; O2SAT 95; BMI 34.3
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
[2024-04-19 11:24] LABS: Hematocrit 42.1 % (42.0-52.0); Hemoglobin 14.2 g/dl (14.0-18.0); Mean Corpuscular HGB Conc 33.7 g/dl (31.0-36.0); Mean Corpuscular Hemoglobin 28.5 pg (27.0-33.0); Mean Corpuscular Volume 84.4 fL (80.0-98.0); Mean Platelet Volume 9.7 fL (9.4-12.4); Platelet Count 328 X10*3/uL (160-400); Red Blood Count 4.99 X10*6/uL (4.60-5.80); Red Cell Distribution Width 14.5 % (11.0-16.0); White Blood Count 14.1 X10*3/uL (4.8-10.8)
[2024-04-19 11:37] LABS: Anion Gap 15 (12-20); Blood Urea Nitrogen 29 mg/dL (9-16); Calcium 9.8 mg/dL (8.4-10.2); Carbon Dioxide 21 mmol/L (22-29); Chloride 109 mmol/L (96-108); Creatinine Clr Calc Pharmacy 109.2; Estimated Glomerular Filt Rate > 60; Glucose Random 130 mg/dL (60-115); Potassium 4.3 mmol/L (3.3-5.1); Sodium 141 mmol/L (135-145)
--- NOTE | 2024-04-19 12:58 | MHC.CARE ---
Pt will be an Adult inpatient bedsearch.
--- OUTSIDE RECORDS SUMMARY | 2024-04-19 13:28 | XMS_ITS | Encounter Summary ---
Author Organization [facility] Address [address] [place] [address] Care Team Providers Care Receiving Coordinator Name Role Phone Keenan Powers MD Primary Care Provider [phone] Reason for Referral * Consultation (Routine) - Denied Specialty Diagnoses / Procedures Referred By Katarina t Referred To Contact Gastroenterology Diagnoses Screen for colon cancer Keenan Powers MD [address] [place] [phone] Phone: tel: fax: Gastroenterology - [address] [facility] [address] [place] [address] Phone: tel: fax: Referral ID Status Reason Start Date Expiration Date V isits Requested Visits Authorized [id number] Denied Specialty Services Required 03/29/2024 03/29/2025 1 0 Reason for Visit * Reason Comments Diabetes Encounter Details Date Type Department Care Team (Late st Contact Info) Description 03/29/2024 2:30 PM EST Office Visit Internal Medicine - [address] [phone] Keenan Powers MD [address] [place] [phone] Type 2 diabetes mellitus with diabetic microalbuminuria, without long-term current use of insulin ([facility]) (Primary Dx); Hyperlipidemia, unspecified hyperlipidemia type; Schizophrenia, unspecified type ([facility]/HCC); Anemia, unspecified type; Screen for colon cancer Social History Tobacco Use Types Packs/Day Years Used Date Smoking Tobacco: Every Day Cigarettes Last attempted to quit: 06/28/1993 Smokeless Tobacco: Never Tobacco Cessation:Ready to Q uit: Not Asked; Counseling Given: Not Answered Alcohol Use Standard Drinks/Week Comments No 0 (1 standard drink = 0.6 oz pur e alcohol) Sex and Gender Information Value Date Recorded Sex Assigned at Male 04/08/2024 1:03 PM EST Legal Sex Male 5:46 AM EST Gender Identity Male 04/08/2024 1:03 PM EST Sexual Orientation Not on file documented as of this encounter Last Filed Vital Signs Vital Sign Reading Time Taken Comments Blood Pressure 122/80 03/29/2024 11:37 AM EST Pulse 84 03/29/2024 11:37 AM EST Temperature - - Respiratory Rate - - Oxygen Saturation - - Inhaled Oxygen Concentration - - Weight 108 kg (238 lb 12.8 oz) 03/29/2024 11:37 AM EST Height 162.6 cm (5' 4 ) 03/29/2024 11:37 AM EST Body Mass Index 40.99 03/29/2024 11:37 AM EST documented in this encounter Progress Notes * Keenan Powers MD - 03/29/2024 2:30 PM ESTAssociated Problem(s): Type 2 diabetes mellitus with diabetic microalbuminuria, without long-term current use of insulin ([facility]) Diabetic diet discussed. Patient will continue regimen of metformin, glipizide. His urine microalbumin levels normalized previously. Orders: Hemoglobin A1c; Future Comprehensive metabolic panel; Future * Keenan Powers MD - 03/29/2024 2:30 PM ESTAssociated Problem(s): Hyperlipidemia Follow low-cholesterol diet. Continue atorvastatin. Orders: Lipid panel with reflex to direct LDL; Future * Keenan Powers MD - 03/29/2024 2:30 PM ESTAssociated Problem(s): Schizophrenia ([facility]) Continue to follow-up with psychiatry. * Keenan Powers MD - 03/29/2024 2:30 PM EST CHIEF COMPLAINT: Chief Complaint Patient presents with Diabetes IDENTIFIER: Arcenio Garcia is a 48 y.o. old male. HPI Patient is a 48-year-old man who presents the office today for medication review. Patient has a history of diabetes and is currently on metformin, glipizide. His last A1c was 6.9 was 8 months ago. She has not followed up since then. He does have a history of microalbuminuria whichnormalized last year. Patient has a history of hyperlipidemia and is currently on atorvastatin. He has a history of schizophrenia and follows up with psychiatry externally. He is pleased with hiscurrent psychiatrist. His recent lab work ordered by his psychiatrist showed mild anemia with an H&H of 13.2/41.8. Hedenies any blood in the stools, dark stools, blood in his urine, GERD, dysphagia, odynophagia, unintended weight loss, early satiety. ROS: GENERAL: No malaise, significant weight loss or fever HEENT: No changes in hearing or vision, nose bleeds or other nasal problems RESPIRATORY: No cough, wheezing or shortness of breath CARDIOVASCULAR: No chest pain, leg swelling or palpitations GI: No abdominal discomfort, blood in stools or black stools NECK: No lumps, goiter, pain or significant neck swelling : No dysuria, frequency or incontinence MUSCULOSKELETAL: No joint pain or swelling, back pain, or muscle pain. SKIN: No lesions, rash or itching NEURO: No persistent headache, syncope, seizures, weakness or numbness PAST MEDICAL HISTORY: Patient Active Problem List Diagnosis Date Noted Schizophrenia ([facility]) 01/11/2024 Microalbuminuria 08/02/2023 Type 2 diabetes mellitus with diabetic microalbuminuria, without long-term current use of insulin ([facility]) 08/02/2023 Hyperlipidemia 11/05/2019 Obesity (BMI 30-39.9) 10/26/2017 Erectile dysfunction 06/07/2017 Myopia with astigmatism 02/07/2014 Type 2 diabetes mellitus with vascular disease ([facility]) 12/27/2013 Past Surgical History: Procedure Laterality Date OTHER SURGICAL HISTORY PROCEDURE: NE SUTURE NERVE REQ SHORTENING BONE EXTREMITY; COMMENT: More than 10 years ago SOCIAL HISTORY: Social History Tobacco Use Smoking status: Every Day Current packs/day: 0.00 Types: Cigarettes Last attempt to quit: 06/28/1993 Years since quittin.7 Smokeless tobacco: Never Substance Use Topics Alcohol use: No FAMILY HISTORY: Family History Problem Relation Name Age of Onset Arthritis Mother asthma, hyperlipidemia, Depression, HTN, sleep disorder Coronary artery disease Father 62.00 Blindness Neg Hx cataract, glaucoma, macular degeneration, strabismus Cataracts Neg Hx Glaucoma Neg Hx Macular degeneration Neg Hx Strabismus Neg Hx Family Status Relation Name Status Mother (Not Specified) Father (Not Specified) Neg Hx (Not Specified) No partnership data on file MEDICATIONS DISCONTINUED/REORDERED: There are no discontinued medications. ACTIVE MEDICATIONS: Outpatient Medications Marked as Taking for the 03/29/24 encounter (Office Visit) with Keenan Powers MD Medication Sig Dispense Refill atorvastatin (LIPITOR) 10 mg tablet Take 1 tablet (10 mg total) by mouth 1 (one) time each day. 30 tablet 0 benztropine (COGENTIN) 0.5 mg tablet TAKE 1 TABLET BY MOUTH TWICE A DAY blood-glucose meter kit 1 Act by Does not apply route 2 times daily. cloZAPine (CLOZARIL) 100 mg tablet Take 425 mg by mouth at bedtime. glipiZIDE (GLUCOTROL XL) 5 mg 24 hr tablet Do not crush, chew, or split.Take 2 Tablets by mouth 2 times daily (with meals) for 180 days. 120 tablet 0 haloperidoL (HALDOL) 5 mg tablet Take 2.5 mg by mouth at bedtime. metFORMIN XR (GLUCOPHAGE-XR) 500 mg 24 hr tablet Take 2 Tablets by mouth 2 times daily (with meals). 120 tablet 0 mirtazapine (REMERON) 7.5 mg tablet Take 7.5 mg by mouth at bedtime. propranoloL (INDERAL) 20 mg tablet Take 20 mg by mouth 2 times daily. sertraline (ZOLOFT) 100 mg tablet Take 1 tab in the morning ALLERGIES: No Known Allergies PHYSICAL EXAM: Visit Vitals BP 122/80 Pulse 84 Ht 1.626 m (64 ) Wt 108 kg (238 lb 12.8 oz) BMI 40.99 kg/m?? Smoking Status Every Day BSA 2.11 m?? EYES: PERRL, conjunctiva and sclera normal NOSE/SINUS: negative MOUTH/THROAT: no erythema or exudates NECK: negative HEART: regular rate, regular rhythm and no murmur LUNG: clear to auscultation LYMPH NODES: grossly normal ABDOMEN: Bowel sounds normoactive, no bruits, soft, non-tender, without organomegaly or palpable masses EXTREMITIES: No edema and Normal pulses bilaterally. NEURO: Awake, alert and oriented x 3, Normal gait and No involuntary motions. SKIN: negative Assessment & Plan Type 2 diabetes mellitus with diabetic microalbuminuria, without long-term current use of insulin (CMS/HCC) Diabetic diet discussed. Patient will continue regimen of metformin, glipizide. His urine microalbumin levels normalized previously. Orders: Hemoglobin A1c; Future Comprehensive metabolic panel; Future Hyperlipidemia, unspecified hyperlipidemia type Follow low-cholesterol diet. Continue atorvastatin. Orders: Lipid panel with reflex to direct LDL; Future Schizophrenia, unspecified type (CMS/HCC) Continue to follow-up with psychiatry. Anemia, unspecified type He denies any overt bleeding. I have ordered an anemia panel. Orders: CBC and differential; Future Vitamin B12 and folate; Future Iron and TIBC; Future Screen for colon cancer Referral to gastroenterology has been placed to schedule a screening colonoscopy. Orders: Ambulatory referral to Gastroenterology; Future Today's documentation was made using voice recognition software.This note may contain grammatical errors secondary to this software. documented in this encounter Plan of Treatment Upcoming Encounters Date Type Department Care Team (Late st Contact Info) Description 06/03/2024 3:30 PM EDT Office Visit [facility] Hematology Oncology [address] [place] [phone] Tere Herron PA [address] [place] [address] 08/19/2024 2:15 PM EDT Office [facility] [address] [place] [address] Keenan Powers MD [address] [place] [address] Scheduled Referrals Name Type Priority Associated Diagnoses Order Schedule Ambulatory referral to Gastroenterology Outpatient Referral Routine Screen for colon cancer 1 Occurrences starting 03/29/2024 until 03/29/2025 documented as of this encounter Results * (ABNORMAL) Lipid panel with reflex to direct LDL (03/29/2024 1:06 PM EST) Cholesterol 110 0 - 200 mg/dL LAB CHEMISTRY METHOD 03/29/2024 4:57 PM [facility] Triglycerides 125 0 - 150 mg/dL LAB CHEMISTRY METHOD 03/29/2024 4:57 PM [facility] HDL 28(L) >=40 mg/dL LAB CHEMISTRY METHOD 03/29/2024 4:57 PM [facility] LDL Calculated 57 0 - 100 mg/dL LAB CHEMISTRY METHOD 03/29/2024 4:57 PM [facility] VLDL Cholesterol Asher 25 mg/dL LAB CHEMISTRY METHOD 03/29/2024 4:57 PM [facility] Non HDL Chol. (LDL+VLDL) 82 <145 mg/dL LAB CHEMISTRY METHOD 03/29/2024 4:57 PM [facility] Chol/HDL Ratio 3.9 0.0 - 4.4 LAB CHEMISTRY METHOD 03/29/2024 4:57 PM [facility] Blood Venous blood specimen / Unknown Venipuncture / Unknown 03/29/2024 1:06 PM EST 03/29/2024 1:06 PM EST Keenan Powers MD LAB BLOOD ORDERABLES Anai jorge Result [facility] [address] [place] [address], * (ABNORMAL) Comprehensive metabolic panel (03/29/2024 1:06 PM EST) Sodium 140 133 - 145 mmol/L LAB CHEMISTRY METHOD 03/29/2024 4:57 PM [facility] Potassium 4.5 3.5 - 5.5 mmol/L LAB CHEMISTRY METHOD 03/29/2024 4:57 PM [facility] Chloride 104 96 - 110 mmol/L LAB CHEMISTRY METHOD 03/29/2024 4:57 PM [facility] CO2 28 21 - 32 mmol/L LAB CHEMISTRY METHOD 03/29/2024 4:57 PM [facility] Anion Gap 8 3 - 11 LAB CHEMISTRY METHOD 03/29/2024 4:57 PM [facility] Glucose 107(H) 70 - 100 mg/dL LAB CHEMISTRY METHOD 03/29/2024 4:57 PM [facility] BUN 16 5 - 25 mg/dL LAB CHEMISTRY METHOD 03/29/2024 4:57 PM [facility] Creatinine 0.80 0.70 - 1.30 mg/dL LAB CHEMISTRY METHOD 03/29/2024 4:57 PM [facility] eGFR 109 >=60 mL/min/1. 73m2 LAB CHEMISTRY METHOD 03/29/2024 4:57 PM [facility] Comment:Calculation based on the??Chronic Kidney Disease Epidemiology Collaboration (CKD-EPI) equation refit??without adjustment for race. BUN/Creatinine Ratio 20.0 LAB CHEMISTRY METHOD 03/29/2024 4:57 PM [facility] Calcium 9.4 8.5 - 10.5 mg/dL LAB CHEMISTRY METHOD 03/29/2024 4:57 PM [facility] AST (SGOT) 14 10 - 42 unit/L LAB CHEMISTRY METHOD 03/29/2024 4:57 PM [facility] ALT (SGPT) 22 10 - 60 unit/L LAB CHEMISTRY METHOD 03/29/2024 4:57 PM [facility] Alkaline Phosphatase 131(H) 42 - 121 unit/L LAB CHEMISTRY METHOD 03/29/2024 4:57 PM [facility] Total Protein 7.9 6.0 - 8.0 g/dL LAB CHEMISTRY METHOD 03/29/2024 4:57 PM [facility] Albumin 4.0 3.2 - 5.0 g/dL LAB CHEMISTRY METHOD 03/29/2024 4:57 PM [facility] Total Bilirubin 0.4 0.0 - 1.4 mg/dL LAB CHEMISTRY METHOD 03/29/2024 4:57 PM [facility] Blood Venous blood specimen / Unknown Venipuncture / Unknown 03/29/2024 1:06 PM EST 03/29/2024 1:06 PM EST us Keenan Powers MD LAB BLOOD ORDERABLES Anai l Result [facility] [address] [place] [address], * (ABNORMAL) Iron and TIBC (03/29/2024 1:06 PM EST) Iron 44(L) 50 - 160 mcg/dL LAB CHEMISTRY METHOD 03/29/2024 4:33 PM [facility] TIBC 373 250 - 450 mcg/dL LAB CHEMISTRY METHOD 03/29/2024 4:33 PM [facility] Iron Saturation 12(L) 20 - 50 % LAB CHEMISTRY METHOD 03/29/2024 4:33 PM EST [facility] Blood Venous blood specimen / Unknown Venipuncture / Unknown 03/29/2024 1:06 PM EST 03/29/2024 1:06 PM EST Keenan Powers MD LAB BLOOD ORDERABLES Anai l Result Performing Organization Address City/[facility]/ZIP Co de Phone Number [facility] [address] [place] [address], [place] [phone] * Vitamin B12 and folate (03/29/2024 1:06 PM EST) Pathologist [facility] Vitamin B-12 527 250 - 900 pcg/mL LAB CHEMISTRY METHOD 03/29/2024 4:57 PM [facility] Folate 13.3 2.8 - 17.0 ng/ml LAB CHEMISTRY METHOD 03/29/2024 4:57 PM EST [facility] Blood Venous blood specimen / Unknown Venipuncture / Unknown 03/29/2024 1:06 PM EST 03/29/2024 1:06 PM EST Keenan Powers MD LAB BLOOD ORDERABLES Anai l Result Performing Organization Address City/[facility]/ZIP Co de Phone Number [facility] [address] [place] [address], [place] [phone] * (ABNORMAL) Hemoglobin A1c (03/29/2024 1:06 PM EST) Pathologist [facility] Hemoglobin A1C 7.3(H) <6.5 % LAB CHEMISTRY METHOD 03/29/2024 9:02 PM EST [facility] Mean Bld Glu Estim. 163 mg/dL LAB CHEMISTRY METHOD 03/29/2024 9:02 PM [facility] Blood Venous blood specimen / Unknown Venipuncture / Unknown 03/29/2024 1:06 PM EST 03/29/2024 1:06 PM EST Keenan Powers MD LAB BLOOD ORDERABLES Anai patel Result [facility] [address] [place] [address], documented in this encounter Visit Diagnoses Diagnosis Type 2 diabetes mellitus with diabetic microalbuminuria, without long-term current use of insulin (CMS/HCC)- Primary Hyperlipidemia, unspecified hyperlipidemia type Schizophrenia, unspecified type (CMS/HCC) Anemia, unspecified type Screen for colon cancer Special screening for malignant neoplasms, colon documented in this encounter Care Teams Receiving Coordinator Relationship Specialty Start Date End Date Keenan Powers MD [address] [place] [phone] PCP - General Internal Medicine 01/24/20 documented as of this encounter
--- OUTSIDE RECORDS SUMMARY | 2024-04-19 13:28 | XMS_ITS | Encounter Summary ---
Author Organization [facility] Address [address] [place] [address] Care Team Providers Care Esthetic Dermatologist Name Role Phone Keenan Powers MD Primary Care Provider [phone] [phone] Reason for Visit * Auth/Cert (Routine) Specialty Diagnoses / Procedures Referred By Katarina t Referred To Contact Diagnoses Encounter for screening for malignant neoplasm of colon Procedures COLONOSCOPY [facility] Endoscopy [address] [place] [address] Phone: tel: Referral ID Status Reason Start Date Expiration Date Visits Re quested Visits Authorized [id number] 1 1 Encounter Details Date Type Department Care Team (Late st Contact Info) Description 04/09/2024 9:18 AM EST Anesthesia Event [facility] Endoscopy [address] [place] [address] Josiah Romeo MD [address] [place] [address] Anesthesia Record Procedure Summary Procedure Name Responsible Anesthesiologist Anesthesia Start Time Anesthesia Stop Time COL Events Date Time Event Comment 04/09/2024 0918 Meds * Agents No agents on file. * Blood No blood administrations on file. Lines, Drains, and Airways No LDAs on file. documented in this encounter Social History Tobacco Use Types Packs/Day Years Used Date Smoking Tobacco: Every Day Cigarettes Last attempted to quit: 06/28/1993 Smokeless Tobacco: Never Alcohol Use Standard Drinks/Week Comments No 0 (1 standard drink = 0.6 oz pur e alcohol) Sex and Gender Information Value Date Recorded Sex Assigned at Male 04/08/2024 1:03 PM EST Legal Sex Male 5:46 AM EST Gender Identity Male 04/08/2024 1:03 PM EST Sexual Orientation Not on file documented as of this encounter Progress Notes * Josiah Romeo MD - 04/09/2024 9:15 AM EST 48 y.o. male scheduled for Colon cancer screening [COLONOSCOPY] Ht Readings from Last 1 Encounters: 03/29/24 1.626 m (64 ) Wt Readings from Last 1 Encounters: 03/29/24 108 kg (238 lb 12.8 oz) There is no height or weight on file to calculate BMI. 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 Authorizing Provider atorvastatin (LIPITOR) 10 mg tablet Take 1 tablet (10 mg total) by mouth 1 (one) time each day. 04/05/24 Keenan Powers MD benztropine (COGENTIN) 0.5 mg tablet TAKE 1 TABLET BY MOUTH TWICE A DAY 10/09/18 Historical Provider, blood-glucose meter kit 1 Act by Does not apply route 2 times daily. 10/28/22 Historical Provider, cloZAPine (CLOZARIL) 100 mg tablet Take 425 mg by mouth at bedtime. Historical Provider, empagliflozin (Jardiance) 10 mg tablet Take 1 tablet (10 mg total) by mouth 1 (one) time each day. 03/31/24 Keenan Powers MD ferrous sulfate 325 mg (65 mg iron) EC tablet Take 1 tablet (325 mg total) by mouth 1 (one) time each day with breakfast. Do not crush, chew, or split. 03/31/24 Keenan Powers MD glipiZIDE (GLUCOTROL XL) 5 mg 24 hr tablet Do not crush, chew, or split.Take 2 Tablets by mouth 2 times daily (with meals) 04/05/24 Keenan Powers MD haloperidoL (HALDOL) 5 mg tablet Take 2.5 mg by mouth at bedtime. Historical Provider, metFORMIN XR (GLUCOPHAGE-XR) 500 mg 24 hr tablet Take 2 Tablets by mouth 2 times daily (with meals). 04/05/24 Keenan Powers MD mirtazapine (REMERON) 7.5 mg tablet Take 7.5 mg by mouth at bedtime. Historical Provider, polyethylene glycol (COLYTE) 240-22.72-6.72 -5.84 gram solution Take 4,000 mL by mouth 1 (one) timefor 1 dose. Drink 8 oz every 10-15 minutes until solution is gone 04/03/24 04/03/24 Anthony Corey MD propranoloL (INDERAL) 20 mg tablet Take 20 mg by mouth 2 times daily. Historical Provider, sertraline (ZOLOFT) 100 mg tablet Take 1 tab in the morning 11/22/17 Historical Provider, atorvastatin (LIPITOR) 10 mg tablet Take 1 tablet (10 mg total) by mouth 1 (one) time each day. 02/08/24 04/05/24 Keenan Powers MD glipiZIDE (GLUCOTROL XL) 5 mg 24 hr tablet Do not crush, chew, or split.Take 2 Tablets by mouth 2 times daily (with meals) for 180 days. 02/08/24 04/05/24 Keenan Powers MD metFORMIN XR (GLUCOPHAGE-XR) 500 mg 24 hr tablet Take 2 Tablets by mouth 2 times daily (with meals). 02/08/24 04/05/24 Keenan Powers MD I have personally reviewed all the patient's medications with them prior to anesthesia. Current In-hospital Medications Social History Tobacco Use Smoking status: Every Day Current packs/day: 0.00 Types: Cigarettes Last attempt to quit: 06/28/1993 Years since quittin.8 Smokeless tobacco: Never Substance Use Topics Alcohol use: No Drug use: No Is the patient a current smoker (e.g. cigarette, cigar, pip, e-cigarette, or mariajuana)? Yes [x] No[] Patient previously instructed to abstain from smoking on the day of procedure? Yes [] No[] Patient smoked on the day of procedure? Yes [] No[] ASPIRE smoking VBR: [] Not interested in quitting [] Interested in quitting- referred to treatment [] Interested in quitting - treatment provided Visit Vitals Smoking Status Every Day LABS: Lab Results Component Value Date WBC 13.4 (H) 03/29/2024 HGB 13.0 (L) 03/29/2024 HCT 40.2 (L) 03/29/2024 MCV 86.5 03/29/2024 PLT 324 03/29/2024 Lab Results Component Value Date GLUCOSE 107 (H) 03/29/2024 CALCIUM 9.4 03/29/2024 NA 140 03/29/2024 K 4.5 03/29/2024 CO2 28 03/29/2024 CL 104 03/29/2024 BUN 16 03/29/2024 CREATININE 0.80 03/29/2024 No results found for: INR , PROTIME No results found for: PTT Relevant Problems Endo (+) Type 2 diabetes mellitus with diabetic microalbuminuria, without long-term current use of insulin ([facility]) Clinical information reviewed: Anesthesia Plan ASA 2 Anesthesia Plan: MAC Anesthesia Considerations MAC Anesthesia Risks Discussed allergic reaction, dental injury, nausea, serious complications, pain, sore throat and corneal abrasion Plan Factors Patient is not a current smoker Smoking cessation education has not been provided Induction method: intravenous Postoperative administration of opioids is intended. Anesthetic plan and risks discussed with patient. Anesthesia Plan discussed with COAL UNLOADER. Anesthesia Evaluation Airway Mallampati: II Thyromental distance: >3 FB Neck ROM: fullnot intubatedno noted risk Dental Pulmonary breath sounds clear to auscultation Cardiovascular (+) hypertension Rhythm: regular Rate: normal ROS comment: HLD Neuro/Psych Mental Status: alert and oriented GI/Hepatic/Renal Endo/Other (+) diabetes mellitus Abdominal Abdomen: soft. Bowel sounds: normal. PONV RISK SCORE: 0 There were no vitals filed for this visit. SpO2 Readings from Last 1 Encounters: No data found for SpO2 WBC Date Value Ref Range Status 03/29/2024 13.4 (H) 4.8 - 10.8 K/mcL Final RBC Date Value Ref Range Status 03/29/2024 4.70 4.50 - 5.50 M/mcL Final Hemoglobin Date Value Ref Range Status 03/29/2024 13.0 (L) 13.5 - 17.5 g/dL Final Hematocrit Date Value Ref Range Status 03/29/2024 40.2 (L) 42.0 - 54.0 % Final Platelets Date Value Ref Range Status 03/29/2024 324 130 - 400 K/mcL Final MCV Date Value Ref Range Status 03/29/2024 86.5 79.0 - 98.0 FL Final No Known Allergies STOP BANG: No data recorded NPO Status: No data recorded documented in this encounter Plan of Treatment Upcoming Encounters Date Type Department Care Team (Late st Contact Info) Description 06/03/2024 3:30 PM EDT Office Visit [facility] Hematology Oncology [address] [place] [address] Tere Herron PA [address] [place] [address] 08/19/2024 2:15 PM EDT [facility] [address] [place] [address] Keenan Powers MD [address] [place] [address] documented as of this encounter Visit Diagnoses Not on filedocumented in this encounter Care Teams Esthetic Dermatologist Relationship Specialty Start Date End Date Keenan Powers MD [address] [place] [id number] PCP - General Internal Medicine 01/24/20 documented as of this encounter
--- OUTSIDE RECORDS SUMMARY | 2024-04-19 13:28 | XMS_ITS | Encounter Summary ---
Author Organization [facility] Address [address] [place] [address] Care Team Providers Care Accounts Payable Analyst Name Role Phone Keenan Powers MD Primary Care Provider [phone] Encounter Details Date Type Department Care Team (Late Contact Info) Description 04/03/2024 Telephone Gastroenterology - [address] [phone] Anthony Corey MD [address] [address] Social History Tobacco Use Types Packs/Day Years [...] as of this encounter Progress Notes * Deysi Petit - 04/03/2024 8:26 AM EST COLON BOOKED 04/09 930 HAY 30MIN. SCRIPT SENT TO PHARMACY. documented in this encounter Plan of Treatment Upcoming Encounters Date Type Department Care Team ([facility] Contact Info) Description 06/03/2024 3:30 PM EDT Office Visit [facility] Hematology Oncology [address] [place] [phone] Tere Herron PA [address] [place] [address] 08/19/2024 2:15 PM EDT Office Visit Internal Medicine - [address] [phone] Keenan Powers MD [address] [place] [address] documented as of this encounter Visit Diagnoses Not on filedocumented in this encounter Care Teams Accounts Payable Analyst Relationship Specialty Start Date End Date Keenan Powers MD [address] [place] [id number] PCP - General Internal Medicine 01/24/20 documented as of this encounter
--- OUTSIDE RECORDS SUMMARY | 2024-04-19 13:28 | XMS_ITS | Encounter Summary ---
Author Organization [facility] Address [address] [place] [address] Care Team Providers Care Engineering Recruiter Name Role Phone Keenan Powers MD Primary Care Provider [phone] Reason for Visit * Reason Onset Date Comments Medication Problem 04/05/2024 metFORMIN XR (GLUCOPHAGE-XR) 500 mg 24 hr tablet, atorvastatin (LIPITOR) 10 mg tablet & glipiZIDE (GLUCOTROL XL) 5 mg 24 hr tablet Encounter Details Date Type Department Care Team (Late st Contact Info) Description 04/05/2024 Telephone Internal Medicine - [address] [phone] Keenan oPwers MD [address] [place] [address] Medication Problem (metFORMIN XR (GLUCOPHAGE-XR) 500 mg 24 hr tablet, atorvastatin (LIPITOR) 10 mg tablet & glipiZIDE (GLUCOTROL XL) 5 mg 24 hr tablet ) Social History Tobacco Use Types Packs/Day Years [...] on file documented as of this encounter Ordered Prescriptions Prescription Sig Dispense Quantity Refills Last Filled Start Date End Date glipiZIDE (GLUCOTROL XL) 5 mg 24 hr tablet Do not crush, chew, or split.Take 2 Tablets by mouth 2 times daily (with meals) 120 tablet 04/05/2024 atorvastatin (LIPITOR) 10 mg tablet Take 1 tablet (10 mg total) by mouth 1 (one) time each day. 30 tablet 04/05/2024 metFORMIN XR (GLUCOPHAGE-XR) 500 mg 24 hr tablet Take 2 Tablets by mouth 2 times daily (with meals). 120 tablet 04/05/2024 documented in this encounter Progress Notes * Alessandra Bell MA - 04/05/2024 1:20 PM EST Re-faxed. * Keyanna Walton - 04/05/2024 12:53 PM EST Who is calling? VNA Nurse with [facility] Name of the medication metFORMIN XR (GLUCOPHAGE-XR) 500 mg 24 hr tablet, atorvastatin (LIPITOR) 10 mg tablet & glipiZIDE (GLUCOTROL XL) 5 mg 24 hr tablet What is the specific problem or interaction? Pt never picked up these med from pharmacy. Pls re-send to [facility] - [place], [place] - [address] [facility] [[id number]] If the patient is having a problem with taking the med - how long has the problem been going on? N/A documented in this encounter Plan of Treatment Upcoming Encounters Date Type Department Care Team (Late st Contact Info) Description 06/03/2024 3:30 PM EDT Office Visit [facility] Hematology Oncology [address] [place] [phone] Tere Herron PA [address] [place] [address] 08/19/2024 2:15 PM EDT Office Visit Internal Medicine - [address] [address] Keenan Powers MD [address] [place] [phone] documented as of this encounter Visit Diagnoses Not on filedocumented in this encounter Discontinued Medications Medication Sig Discontinue Reason Start Date End Da te glipiZIDE (GLUCOTROL XL) 5 mg 24 hr tablet Do not crush, chew, or split.Take 2 Tablets by mouth 2 times daily (with meals) for 180 days. Reorder 02/08/2024 04/05/2024 atorvastatin (LIPITOR) 10 mg tablet Take 1 tablet (10 mg total) by mouth 1 (one) time each day. Reorder 02/08/2024 04/05/2024 metFORMIN XR (GLUCOPHAGE-XR) 500 mg 24 hr tablet Take 2 Tablets by mouth 2 times daily (with meals). Reorder 02/08/2024 04/05/2024 documented as of this encounter Care Teams Engineering Recruiter Relationship Specialty Start Date End Date Keenan Powers MD [address] [place] [phone] PCP - General Internal Medicine 01/24/20 documented as of this encounter
--- OUTSIDE RECORDS SUMMARY | 2024-04-19 13:28 | XMS_ITS | Encounter Summary ---
Author Organization [facility] Address [address] [place] [address] Care Team Providers Care Investment Banking Manager Name Role Phone Keenan Powers MD Primary Care Provider [phone] Encounter Details Date Type Department Care Team (Late Contact Info) Description 04/02/2024 Telephone Internal Medicine - [address] [phone] Keysha Shultz MA Social History Tobacco Use Types Packs/Day Years [...] on file documented as of this encounter Plan of Treatment Upcoming Encounters Date Type Department Care Team (Late Contact Info) Description 06/03/2024 3:30 PM EDT Office Visit [facility] Hematology Oncology [address] [place] [phone] Tere Herron PA [address] [place] [address] 08/19/2024 2:15 PM EDT Office Visit Internal Medicine - [address] [phone] Keenan Powers MD [address] [place] [address] documented as of this encounter Visit Diagnoses Not on filedocumented in this encounter Care Teams Investment Banking Manager Relationship Specialty Start Date End Date Keenan Powers MD [address] [place] [address] PCP - General Internal Medicine 01/24/20 documented as of this encounter
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
--- OUTSIDE RECORDS SUMMARY | 2024-04-19 13:28 | XMS_ITS | Clinical Summary ---
Author Organization [address] Address [address] [place] [address] Phone Care Team Providers Care Nuclear Spectroscopist Name Role Phone Keenan Powers MD Primary Care Provider [phone] Allergies No known active allergies Medications benztropine (COGENTIN) 0.5 mg tablet TAKE 1 TABLET BY MOUTH TWICE A DAY 9 Active blood-glucose meter kit 1 Act by Does not apply route 2 times daily. 3 Active cloZAPine (CLOZARIL) 100 mg tablet Take 425 mg by mouth at bedtime. Active haloperidoL (HALDOL) 5 mg tablet Take 2.5 mg by mouth at bedtime. Active mirtazapine (REMERON) 7.5 mg tablet Take 7.5 mg by mouth at bedtime. Active propranoloL (INDERAL) 20 mg tablet Take 20 mg by mouth 2 times daily. Active sertraline (ZOLOFT) 100 mg tablet Take 1 tab in the morning 8 Active ferrous sulfate 325 mg (65 mg iron) EC tablet Take 1 tablet (325 mg total) by mouth 1 (one) time each day with breakfast. Do not crush, chew, or split. 90 tablet 5 Active empagliflozin (Jardiance) 10 mg tablet Take 1 tablet (10 mg total) by mouth 1 (one) time each day. 90 tablet 1 5 Active metFORMIN XR (GLUCOPHAGE-XR) 500 mg 24 hr tablet Take 2 Tablets by mouth 2 times daily (with meals). 120 tablet 5 Active atorvastatin (LIPITOR) 10 mg tablet Take 1 tablet (10 mg total) by mouth 1 (one) time each day. 30 tablet 5 Active glipiZIDE (GLUCOTROL XL) 5 mg 24 hr tablet Do not crush, chew, or split.Take 2 Tablets by mouth 2 times daily (with meals) 120 tablet 5 Active glipiZIDE (GLUCOTROL XL) 5 mg 24 hr tablet Do not crush, chew, or split.Take 2 Tablets by mouth 2 times daily (with meals) for 180 days. 120 tablet 5 04/05/19 25 Discontinue d(Reorder) atorvastatin (LIPITOR) 10 mg tablet Take 1 tablet (10 mg total) by mouth 1 (one) time each day. 30 tablet 5 04/05/19 25 Discontinue d(Reorder) metFORMIN XR (GLUCOPHAGE-XR) 500 mg 24 hr tablet Take 2 Tablets by mouth 2 times daily (with meals). 120 tablet 5 04/05/19 25 Discontinue d(Reorder) polyethylene glycol (COLYTE) 240-22.72-6.72 -5.84 gram solutionIndicat ions:Colon cancer screening Take 4,000 mL by mouth 1 (one) time for 1 dose. Drink 8 oz every 10-15 minutes until solution is gone 4000 mL 5 04/03/19 25 Active Problems Problem Noted Date Diagnosed Date Schizophrenia 01/11/2024 Overview (01/11/2024): Dx'd at 19 years old Assessment & Plan (03/29/2024 12:12 PM EST): Continue to follow-up with psychiatry. Microalbuminuria 08/02/2023 Type 2 diabetes mellitus wit h diabetic microalbuminuria, without long-term current use of insulin 08/02/2023 Assessment & Plan (03/29/2024 12:12 PM EST): Diabetic diet discussed. Patient will continue regimen of metformin, glipizide. His urine microalbumin levels normalized previously. Orders: Hemoglobin A1c; Future Comprehensive metabolic panel; Future Hyperlipidemia 11/05/2019 Assessment & Plan (03/29/2024 12:12 PM EST): Follow low-cholesterol diet. Continue atorvastatin. Orders: Lipid panel with reflex to direct LDL; Future Obesity (BMI 30-39.9) 10/26/2017 Erectile dysfunction 06/07/2017 Myopia with astigmatism 02/07/2014 Type 2 diabetes mellitus with vascular disease 1 02/26/2013 Encounters Date Type Department Care Team Description 04/17/2024 11:39 AM EDT - 04/17/2024 1:14 PM EDT Emergency [facility] Emergency [address] [place] [id number] Discharge Disposition: Left Against Medical Advice 04/09/2024 9:18 AM EST Anesthesia Event [facility] Endoscopy [address] [place] [phone] Josiah Romeo MD 04/05/2024 Telephone Internal Medicine - [address] [phone] Keenan Powers MD Medication Problem (metFORMIN XR (GLUCOPHAGE-XR) 500 mg 24 hr tablet, atorvastatin (LIPITOR) 10 mg tablet & glipiZIDE (GLUCOTROL XL) 5 mg 24 hr tablet ) 04/03/2024 Telephone Gastroenterology - 299 [facility] [address] [phone] Anthony Corey MD 04/02/2024 Telephone Internal Medicine - [address] [phone] Keysha Shultz MA 03/29/2024 2:30 PM EST Office Visit Internal Medicine - [address] [phone] Keenan Powers MD Type 2 diabetes mellitus with diabetic microalbuminuria, without long-term current use of insulin (CMS/HCC) (Primary Dx); Hyperlipidemia, unspecified hyperlipidemia type; Schizophrenia, unspecified type (CMS/HCC); Anemia, unspecified type; Screen for colon cancer 01/22/2024 Telephone Internal Medicine - [address] [phone] Keenan Powers MD Faxed Order (Juliano ) from Last 3 Months Immunizations Name Administration Dates Next Due Influenza Quadravalent, MDCK , 0.5ml, preservative free (Flucelvax) 6mo and older 10/28/2022,03/01/2022,11/05/2020 Influenza trivalent, 0.5mL, preservative free (Fluarix; FluLaval; Fluzone) ages 6mo and older (Afluria) 3 years and older 01/06/2016,12/23/2014,11/22/2013 Pneumococcal polysaccharide 23 valent (Pneumovax 23) 2yo and older 06/07/2017 Tdap Tetanus diptheria acell ular pertussis (Boostrix; Adacel) 7yo and older 11/22/2013 Surgical History Surgery Date Site/Laterality Comments OTHER SURGICAL HISTORY PROCEDURE: DE SUTURE NERVE REQ SHORTENING BONE EXTREMITY; COMMENT: More than 10 years ago Medical History Medical History Date Comments Schizoaffective disorder ([facility]) DX:Schizoaffective disorder ([facility]); COMMENT: Dx'd at 19 years old - previously saw Leida Pickard Erectile dysfunction 06/07/2017 DX:Erectile dysfunction Schizophrenia ([facility]) DX:Schiz ophrenia ([facility]); COMMENT: Dx'd at 19 years old Obesity (BMI 30-39.9) 10/26/2017 DX:Obesity (BMI 30-39.9) Type 2 diabetes mellitus wit h vascular disease ([facility]) 12/27/2013 DX:Type 2 diabetes mellitus with vascular disease ([facility]) Homelessness 05/03/2018 DX:Homelessness Family History Medical History Relation Name Comments Coronary artery disease Father dece ased Arthritis Mother asthma, hyperli pidemia, Depression, HTN, sleep disorder Blindness Neg Hx cataract, glauc abel, macular degeneration, strabismus Cataracts Neg Hx Glaucoma Neg Hx Macular degeneration Neg Hx Strabismus Neg Hx Relation Name Status Comments Father Mother Social History Tobacco Use Types Packs/Day Years [...] PM EST Sexual Orientation Not on file Obstetrics History Last Filed Vital Signs Vital Sign Reading [...] Mass Index 41.2 04/17/2024 9:56 AM EDT Plan of Treatment Upcoming Encounters Date Type Department Care Team (Late st Contact Info) Description 06/03/2024 3:30 PM EDT Office Visit [facility] Hematology Oncology [address] [place] [phone] Tere Herron PA [address] [place] [address] 08/19/2024 2:15 PM EDT Office Visit Internal Medicine - [address] [phone] Keenan Powers MD [address] [place] [phone] Health Maintenance Due Date Last Done Comments Diabetes: Annual Retina Eye Exam 12/27/1985 Hepatitis B Vaccines (1 of 3 - 19+ 3-dose series) 12/27/1994 Pneumococcal Vaccine: Pediatrics (0 to 5 Years) and At-Risk Patients (6 to 64 Years) (2 of 2 - PCV) 06/07/2018 06/07/2017 Colorectal Cancer Screening: Colonoscopy 01/09/2022 HIV Screening 01/09/2022 Hepatitis C Screening 01/09/2022 Social Influencers of Health Screening 01/09/2022 COVID-19 Vaccine (2 season) 2023 08/07/2020 Influenza Vaccine (#1) 2023 , 03/01/2022, 11/05/2020, Additional history exists DTaP,Tdap,and Td Vaccines (2 - Td or Tdap) 11/23/2023 11/22/2013 Depression Screening 08/01/2024 08/02/2023 Diabetes: Annual Urine Albumin-Creatinine Ratio (uACR) 08/01/2024 08/02/2023 Diabetes: Annual Foot Exam 08/01/2024 08/02/2023 Diabetes: Blood Sugar Control Test (HGBA1C) 09/26/2024 03/29/2024, 08/02/2023, 08/02/2023 Diabetes: Annual GFR (Glomerular Filtration Rate) 03/29/2025 03/29/2024, 08/02/2023, 08/02/2023 Hypertension/CHF/CAD Annual BMP Blood Test 03/29/2025 03/29/2024, 08/02/2023, 08/02/2023 Cholesterol Screening (Lipid Panel) 03/29/2029 03/29/2024, 10/28/2022 HIB Vaccines Aged Out No longer eligi ble based on patient's age to complete this topic HPV Vaccines Aged Out No longer eligi ble based on patient's age to complete this topic Hepatitis A Vaccines Aged Out No long er eligible based on patient's age to complete this topic IPV Vaccines Aged Out No longer eligi ble based on patient's age to complete this topic MMR Vaccines Aged Out No longer eligi ble based on patient's age to complete this topic Meningococcal ACWY Vaccine Aged Out N o longer eligible based on patient's age to complete this topic Meningococcal B Vacine Aged Out No lo nger eligible based on patient's age to complete this topic RSV Immunization Patients Under 20 months Aged Out No longer eligible based on patient's age to complete this topic Varicella Vaccines Aged Out No longer eligible based on patient's age to complete this topic Procedures Procedure Name Priority Date/Time Associated Diagnosis Comments CBC WITH AUTO DIFFERENTIAL Routine 03/29/2024 1:06 PM EST Anemia, unspecified type HEMOGLOBIN A1C Routine 03/29/2024 1:06 PM EST Type 2 diabetes mellitus with diabetic microalbuminuria, without long-term current use of insulin ([facility]) CBC AND DIFFERENTIAL Routine 03/29/2024 1:06 PM EST Anemia, unspecified type VITAMIN B12 AND FOLATE Routine 03/29/2024 1:06 PM EST Anemia, unspecified type IRON AND TIBC Routine 03/29/2024 1:06 PM EST Anemia, unspecified type COMPREHENSIVE METABOLIC PANEL Routine 03/29/2024 1:06 PM EST Type 2 diabetes mellitus with diabetic microalbuminuria, without long-term current use of insulin ([facility]) LIPID PANEL WITH REFLEX TO DIRECT LDL Routine 03/29/2024 1:06 PM EST Hyperlipidemia, unspecified hyperlipidemia type CBC WITH AUTO DIFFERENTIAL Routine 03/22/2024 10:16 AM EST Drug therapy CBC AND DIFFERENTIAL Routine 03/22/2024 10:16 AM EST Drug therapy CBC WITH AUTO DIFFERENTIAL Routine 02/22/2024 10:26 AM EST Drug therapy CBC AND DIFFERENTIAL Routine 02/22/2024 10:26 AM EST Drug therapy DEPRESSION SCREENING Routine 08/02/2023 URINE ALBUMIN CREATININE RATIO Routine 08/02/2023 DIABETES FOOT EXAM Routine 08/02/2023 from Last 3 Months or Most Recently Relevant to Health Maintenance Results * Vitamin B12 and folate (03/29/2024 1:06 PM EST) [facility] Vitamin B-12 527 250 - 900 pcg/mL LAB CHEMISTRY METHOD 03/29/2024 4:57 PM EST [facility] Folate 13.3 2.8 - 17.0 ng/ml LAB CHEMISTRY METHOD 03/29/2024 4:57 PM EST [facility] Blood Venous blood specimen / Unknown Venipuncture / Unknown 03/29/2024 1:06 PM EST 03/29/2024 1:06 PM EST Keenan Powers MD LAB BLOOD ORDERABLES Anai l Result [facility] [address] [place] [address], [place] [phone] * (ABNORMAL) Lipid panel with reflex to direct LDL (03/29/2024 1:06 PM EST) Cholesterol 110 0 - 200 mg/dL LAB CHEMISTRY METHOD 03/29/2024 4:57 PM [facility] Triglycerides 125 0 - 150 mg/dL LAB CHEMISTRY METHOD 03/29/2024 4:57 PM [facility] HDL 28(L) >=40 mg/dL LAB CHEMISTRY METHOD 03/29/2024 4:57 PM [facility] LDL Calculated 57 0 - 100 mg/dL LAB CHEMISTRY METHOD 03/29/2024 4:57 PM [facility] VLDL Cholesterol Asher 25 mg/dL LAB CHEMISTRY METHOD 03/29/2024 4:57 PM [facility] Non HDL Chol. (LDL+VLDL) 82 <145 mg/dL LAB CHEMISTRY METHOD 03/29/2024 4:57 PM [facility] Chol/HDL Ratio 3.9 0.0 - 4.4 LAB CHEMISTRY METHOD 03/29/2024 4:57 PM [facility] Blood Venous blood specimen / Unknown Venipuncture / Unknown 03/29/2024 1:06 PM EST 03/29/2024 1:06 PM EST Keenan Powers MD LAB BLOOD ORDERABLES Anai l Result [facility] [address] [place] [address], * (ABNORMAL) CBC auto differential (03/29/2024 1:06 PM EST) Only the most recent of3 resultswithin the time period is included. WBC 13.4(H) 4.8 - 10.8 K/mcL LAB HEMETOLOGY METHOD 03/29/2024 2:59 PM [facility] RBC 4.70 4.50 - 5.50 M/mcL LAB HEMETOLOGY METHOD 03/29/2024 2:59 PM [facility] Hemoglobin 13.0(L) 13.5 - 17.5 g/dL LAB HEMETOLOGY METHOD 03/29/2024 2:59 PM [facility] Hematocrit 40.2(L) 42.0 - 54.0 % LAB HEMETOLOGY METHOD 03/29/2024 2:59 PM [facility] MCV 86.5 79.0 - 98.0 FL LAB HEMETOLOGY METHOD 03/29/2024 2:59 PM [facility] MCH 28.0 27.0 - 32.0 pcg LAB HEMETOLOGY METHOD 03/29/2024 2:59 PM [facility] MCHC 32.3 32.0 - 37.0 g/dL LAB HEMETOLOGY METHOD 03/29/2024 2:59 PM [facility] RDW 14.2 11.0 - 15.0 % LAB HEMETOLOGY METHOD 03/29/2024 2:59 PM [facility] Platelets 324 130 - 400 K/mcL LAB HEMETOLOGY METHOD 03/29/2024 2:59 PM [facility] MPV 10.2 7.0 - 11.0 FL LAB HEMETOLOGY METHOD 03/29/2024 2:59 PM [facility] NRBC 0.0 <1.0 % LAB HEMETOLOGY METHOD 03/29/2024 2:59 PM [facility] NRBC Absolute 0.00 <0.10 K/mcL LAB HEMETOLOGY METHOD 03/29/2024 2:59 PM [facility] Neutrophils Relative 65.1 % LAB HEMETOLOGY METHOD 03/29/2024 2:59 PM [facility] Lymphocytes Relative 28.0 % LAB HEMETOLOGY METHOD 03/29/2024 2:59 PM [facility] Monocytes Relative 5.0 % LAB HEMETOLOGY METHOD 03/29/2024 2:59 PM [facility] Eosinophils Relative 1.3 % LAB HEMETOLOGY METHOD 03/29/2024 2:59 PM [facility] Basophils Relative 0.2 % LAB HEMETOLOGY METHOD 03/29/2024 2:59 PM [facility] Immature Granulocytes Relative 0.4 % LAB HEMETOLOGY METHOD 03/29/2024 2:59 PM [facility] Neutrophils Absolute 8.69(H) 1.50 - 7.00 K/mcL LAB HEMETOLOGY METHOD 03/29/2024 2:59 PM [facility] Lymphocytes Absolute 3.75 1.00 - 5.00 K/mcL LAB HEMETOLOGY METHOD 03/29/2024 2:59 PM [facility] Monocytes Absolute 0.67 0.20 - 1.00 K/mcL LAB HEMETOLOGY METHOD 03/29/2024 2:59 PM [facility] Eosinophils Absolute 0.17 0.00 - 0.50 K/mcL LAB HEMETOLOGY METHOD 03/29/2024 2:59 PM [facility] Basophils Absolute 0.03 0.00 - 0.20 K/mcL LAB HEMETOLOGY METHOD 03/29/2024 2:59 PM EST [facility] Immature Granulocytes Absolute 0.06(H) 0.00 - 0.03 K/mcL LAB HEMETOLOGY METHOD 03/29/2024 2:59 PM EST [facility] Blood Venous blood specimen / Unknown Venipuncture / Unknown 03/29/2024 1:06 PM EST 03/29/2024 1:06 PM EST Keenan Powers MD LAB BLOOD ORDERABLES Anai l Result [facility] [address] [place] [address], [place] [phone] * (ABNORMAL) Iron and TIBC (03/29/2024 1:06 PM EST) Iron 44(L) 50 - 160 mcg/dL LAB CHEMISTRY METHOD 03/29/2024 4:33 PM EST [facility] TIBC 373 250 - 450 mcg/dL LAB CHEMISTRY METHOD 03/29/2024 4:33 PM EST [facility] Iron Saturation 12(L) 20 - 50 % LAB CHEMISTRY METHOD 03/29/2024 4:33 PM EST [facility] Blood Venous blood specimen / Unknown Venipuncture / Unknown 03/29/2024 1:06 PM EST 03/29/2024 1:06 PM EST Keenan Powers MD LAB BLOOD ORDERABLES Anai l Result [facility] [address] [place] [address], [place] [phone] * (ABNORMAL) Hemoglobin A1c (03/29/2024 1:06 PM EST) Hemoglobin A1C 7.3(H) <6.5 % LAB CHEMISTRY METHOD 03/29/2024 9:02 PM EST [facility] Mean Bld Glu Estim. 163 mg/dL LAB CHEMISTRY METHOD 03/29/2024 9:02 PM [facility] Blood Venous blood specimen / Unknown Venipuncture / Unknown 03/29/2024 1:06 PM EST 03/29/2024 1:06 PM EST us Keenan Powers MD LAB BLOOD ORDERABLES Anai l Result [facility] [address] [place] [address], [place] [phone] * (ABNORMAL) Comprehensive metabolic panel (03/29/2024 1:06 PM EST) Sodium 140 133 - 145 mmol/L LAB CHEMISTRY METHOD 03/29/2024 4:57 PM [facility] Potassium 4.5 3.5 - 5.5 mmol/L LAB CHEMISTRY METHOD 03/29/2024 4:57 PM [facility] Chloride 104 96 - 110 mmol/L LAB CHEMISTRY METHOD 03/29/2024 4:57 PM [facility] CO2 28 21 - 32 mmol/L LAB CHEMISTRY METHOD 03/29/2024 4:57 PM [facility] Anion Gap 8 3 - 11 LAB CHEMISTRY METHOD 03/29/2024 4:57 PM [facility] Glucose 107(H) 70 - 100 mg/dL LAB CHEMISTRY METHOD 03/29/2024 4:57 PM [facility] BUN 16 5 - 25 mg/dL LAB CHEMISTRY METHOD 03/29/2024 4:57 PM [facility] Creatinine 0.80 0.70 - 1.30 mg/dL LAB CHEMISTRY METHOD 03/29/2024 4:57 PM [facility] eGFR 109 >=60 mL/min/1. 73m2 LAB CHEMISTRY METHOD 03/29/2024 4:57 PM [facility] Comment:Calculation based on the??Chronic Kidney Disease Epidemiology Collaboration (CKD-EPI) equation refit??without adjustment for race. BUN/Creatinine Ratio 20.0 LAB CHEMISTRY METHOD 03/29/2024 4:57 PM [facility] Calcium 9.4 8.5 - 10.5 mg/dL LAB CHEMISTRY METHOD 03/29/2024 4:57 PM [facility] AST (SGOT) 14 10 - 42 unit/L LAB CHEMISTRY METHOD 03/29/2024 4:57 PM [facility] ALT (SGPT) 22 10 - 60 unit/L LAB CHEMISTRY METHOD 03/29/2024 4:57 PM [facility] Alkaline Phosphatase 131(H) 42 - 121 unit/L LAB CHEMISTRY METHOD 03/29/2024 4:57 PM [facility] Total Protein 7.9 6.0 - 8.0 g/dL LAB CHEMISTRY METHOD 03/29/2024 4:57 PM [facility] Albumin 4.0 3.2 - 5.0 g/dL LAB CHEMISTRY METHOD 03/29/2024 4:57 PM [facility] Total Bilirubin 0.4 0.0 - 1.4 mg/dL LAB CHEMISTRY METHOD 03/29/2024 4:57 PM [facility] Blood Venous blood specimen / Unknown Venipuncture / Unknown 03/29/2024 1:06 PM EST 03/29/2024 1:06 PM EST Keenan Powers MD LAB BLOOD ORDERABLES Anai l Result [facility] [address] [place] [address], [place] [phone] * Urine Albumin Creatinine Ratio (08/02/2023) Urine Albumin Creatinine Ratio Abstracted us Historical Provider HEALTH MAINTENANCE Final Result * Depression Screening (08/02/2023) Depression Screening Abstracted Historical Provider HEALTH MAINTENANCE Final Result * Diabetes Foot Exam (08/02/2023) Diabetes: Annual Foot Exam Abstracted Historical Provider HEALTH MAINTENANCE Final Result from Last 3 Months or Most Recently Relevant to Health Maintenance Insurance MEDICAID - [place] [facility] Care Teams Nuclear Spectroscopist Relationship Specialty Start Date End Date Keenan Powers MD [address] [place] [id number] PCP - General Internal Medicine 01/24/20
--- NOTE | 2024-04-19 13:36 | ECG_ITS ---
Test Reason : ? QT Prolong Blood Pressure : */* mmHG Vent. Rate : 77 BPM Atrial Rate : 77 BPM P-R Int : 148 ms QRS Dur : 146 ms QT Int : 418 ms P-R-T Axes : 45 -50 21 degrees QTcB Int : 473 ms Normal sinus rhythm Right bundle branch block Left anterior fascicular block Bifascicular block Abnormal ECG When compared with ECG of 25-May-2023 18:55, No significant change was found Referred By: Gilda Caraballo Electronically Signed By: SILVIA STUBBS
--- NOTE | 2024-04-19 17:02 | PC.NURSE ---
MULTIPLE ATTEMPTS MADE TO OBTAIN URINE SPECIMEN, HE IS TOO DISORGANIZED TO FOLLOW THROUGH. PT IS EMOTIONALLY LABILE, THOUGH ABLE TO BE REDIRECTED NEEDED. NO VIOLENT BEHAVIOURS WHILE IN POD. REPORT GIVEN TO M5 RN.
--- NOTE | 2024-04-19 17:05 | PC.NURSE ---
THIS RN WITNESSED CV SIGNED BY PT.
[2024-04-19 17:53] VITALS: BP 149/74; PULSE 83; RESP 18; TEMP 36.6; O2SAT 95
[2024-04-19 21:29] VITALS: BP 149/74; PULSE 83
[2024-04-19] MEDS: Benztropine Mesylate 0.5 MG TABLET PO (21:29)
[2024-04-19] MEDS: Propranolol HCL 20 MG TABLET PO (21:29)
[2024-04-19] MEDS: metFORMIN HCl ER 500 MG TAB.ER.24H 1000 MG PO (21:29)
[2024-04-19] MEDS: glipiZIDE XL 10 MG TAB.ER.24 PO (21:29)
[2024-04-19] MEDS: HaloperidoL 1 MG TABLET 4 MG PO (21:31)
[2024-04-19 22:30] VITALS: BMI 38.2
[2024-04-19 23:39] VITALS: BP 154/67; PULSE 98; RESP 16; TEMP 36.4; O2SAT 99
[2024-04-20] MEDS: traZODone HCL 50 MG TABLET PO (03:33)
[2024-04-20] MEDS: hydrOXYzine HCL 25 MG TABLET PO ×2 (03:33→12:28)
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
[2024-04-20] MEDS: Flu Vacc TS2024-25(6mos up)/PF 0.5 ML SYRINGE IM (05:45)
[2024-04-20 08:00] VITALS: BP 172/80; PULSE 77; RESP 16; TEMP 36.7; O2SAT 98
[2024-04-20 08:26] LABS: Estimated Average Glucose 148 mg/dL; Hemoglobin A1c % 6.8 % (<6.0)
[2024-04-20] MEDS: HaloperidoL 1 MG TABLET 2 MG PO (08:40)
[2024-04-20] MEDS: Atorvastatin Calcium 10 MG TABLET PO (08:40)
[2024-04-20] MEDS: Propranolol HCL 20 MG TABLET PO ×2 (08:40→22:57)
[2024-04-20] MEDS: Benztropine Mesylate 0.5 MG TABLET PO ×2 (08:40→22:57)
[2024-04-20] MEDS: metFORMIN HCl ER 500 MG TAB.ER.24H 1000 MG PO ×2 (08:40→22:56)
[2024-04-20] MEDS: glipiZIDE XL 10 MG TAB.ER.24 PO ×2 (08:40→22:57)
[2024-04-20] MEDS: Sertraline HCL 100 MG TABLET PO (08:40)
[2024-04-20 08:56] LABS: Alanine Aminotransferase 17 U/L (0-40); Albumin Level 4.2 g/dL (3.5-5.0); Alkaline Phosphatase 101 U/L (39-117); Anion Gap 12 (12-20); Aspartate Amino Transferase 19 U/L (5-37); Bilirubin Total 0.2 mg/dL (0.0-1.0); Blood Urea Nitrogen 26 mg/dL (9-16); Calcium 9.4 mg/dL (8.4-10.2); Carbon Dioxide 23 mmol/L (22-29); Chloride 109 mmol/L (96-108); Cholesterol 120 mg/dL (<200); Creatinine Clr Calc Pharmacy 124.2; Estimated Glomerular Filt Rate > 60; Glucose Fasting 136 mg/dL (60-99); HDL Cholesterol 27 mg/dL (>40); LDL Cholesterol Calculated 76 mg/dL (<100); Potassium 4.4 mmol/L (3.3-5.1); Sodium 140 mmol/L (135-145); Total Protein 7.9 g/dL (6.5-8.0); Triglycerides 86 mg/dL (<150)
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
[2024-04-20 09:12] LABS: Free T4 (Free Thyroxine) 1.04 ng/dL (0.71-1.85); Thyroid Stimulating Hormone 1.58 uIU/mL (0.32-4.0)
[2024-04-20 09:28] LABS: Folate 12.4 ng/mL (> or = 4.0); Vitamin B12 450 pg/mL (200-900)
[2024-04-20] MEDS: Nicotine Polacrilex 2 MG GUM BUCCAL (12:28)
[2024-04-20 15:15] LABS: MANUAL DIFF FLAG NO
[2024-04-20 15:21] LABS: Basophils Absolute Auto 0.1 X10*3/uL (0.0-0.2); Basophils Percent Auto 0.4 % (0-2); Eosinophils Absolute Auto 0.3 X10*3/uL (0.0-0.4); Eosinophils Percent Auto 1.5 % (0-4); Hematocrit 40.2 % (42.0-52.0); Hemoglobin 13.3 g/dl (14.0-18.0); Imm Gran Abs Auto 0.07 X10*3/uL (0.00-0.03); Imm Gran Pct Auto 0.4 % (0.0-0.4); Lymphocytes Absolute Auto 4.1 X10*3/uL (1.2-4.9); Lymphocytes Percent Auto 25.3 % (20-40); Mean Corpuscular HGB Conc 33.1 g/dl (31.0-36.0); Mean Corpuscular Hemoglobin 28.1 pg (27.0-33.0); Mean Platelet Volume 9.5 fL (9.4-12.4); Monocytes Absolute Auto 1.1 X10*3/uL (0.1-1.2); Monocytes Percent Auto 6.8 % (2-11); Neut%MD 65.6 %; Neutrophils Absolute Auto 10.7 x10*3/uL (2.0-8.3); Neutrophils Percent Auto 65.6 % (45-73); Platelet Count 321 X10*3/uL (160-400); Red Blood Count 4.73 X10*6/uL (4.60-5.80); Red Cell Distribution Width 14.3 % (11.0-16.0); WBCANC 16.2 X10*3/uL; White Blood Count 16.2 X10*3/uL (4.8-10.8)
[2024-04-20 15:32] LABS: Anion Gap 14 (12-20); Blood Urea Nitrogen 26 mg/dL (9-16); Calcium 9.5 mg/dL (8.4-10.2); Carbon Dioxide 23 mmol/L (22-29); Chloride 109 mmol/L (96-108); Creatinine Clr Calc Pharmacy 121.1; Estimated Glomerular Filt Rate > 60; Glucose Random 78 mg/dL (60-115); Potassium 4.2 mmol/L (3.3-5.1); Sodium 142 mmol/L (135-145)
[2024-04-20] MEDS: OLANZapine 5 MG TABLET PO (17:54)
[2024-04-20] MEDS: OLANZapine 10 MG VIAL IM (18:34)
[2024-04-20] MEDS: LORazepam 2 MG/ML VIAL IM (18:34)
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
[2024-04-20 18:45] VITALS: RESP 19
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
--- NOTE | 2024-04-20 18:56 | PM.EVENT ---
Event Note Date of Service: 04/20/24 Event Note: seen s/p chemical restraint, appears comfortable, alert oriented, calm, RR normal Time Spent With Patient Time: Total time managing care of this patient today ____ minutes.
[2024-04-20 18:57] VITALS: BP 129/54; PULSE 70; RESP 19; TEMP 36.4; O2SAT 95
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
[2024-04-20 19:15] VITALS: RESP 20
[2024-04-20 19:34] VITALS: RESP 21
[2024-04-20] MEDS: cloZAPine 25 MG TABLET PO (22:56)
[2024-04-20 22:57] VITALS: BP 180/84; PULSE 108
[2024-04-20] MEDS: HaloperidoL 1 MG TABLET 4 MG PO (22:57)
[2024-04-21] MEDS: OLANZapine 5 MG TABLET PO ×3 (05:28→16:33)
[2024-04-21] MEDS: hydrOXYzine HCL 25 MG TABLET PO ×2 (05:28→08:39)
[2024-04-21 08:37] VITALS: BP 142/72; PULSE 73; RESP 16; TEMP 37; O2SAT 97
[2024-04-21] MEDS: glipiZIDE XL 10 MG TAB.ER.24 PO ×2 (08:38→20:51)
[2024-04-21] MEDS: Sertraline HCL 100 MG TABLET PO (08:38)
[2024-04-21] MEDS: metFORMIN HCl ER 500 MG TAB.ER.24H 1000 MG PO ×2 (08:38→20:52)
[2024-04-21] MEDS: Propranolol HCL 20 MG TABLET PO ×2 (08:38→20:51)
[2024-04-21] MEDS: Benztropine Mesylate 0.5 MG TABLET PO ×2 (08:38→20:52)
[2024-04-21] MEDS: Atorvastatin Calcium 10 MG TABLET PO (08:39)
[2024-04-21] MEDS: HaloperidoL 1 MG TABLET 2 MG PO (08:39)
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
[2024-04-21 14:45] LABS: Amphetamine Screen Urine Not Detected (Not Detect); Barbiturates, Urine Not Detected (Not Detect); Benzodiazepines Screen Urine Not Detected (Not Detect); Buprenorphine Scr Not Detected (Not Detect); Cannabinoid Screen Urine Not Detected (Not Detect); Cocaine Screen Urine Not Detected (Not Detect); Fentanyl, urine Not Detected (Not Detect); Methadone Screen, Urine Not Detected (Not Detect); Opiate Screen Urine Not Detected (Not Detect); Oxycodone Screen Urine Not Detected (Not Detect); Phencyclidine Screen Urine Not Detected (Not Detect)
[2024-04-21 20:44] VITALS: BP 158/73; PULSE 95; RESP 18; TEMP 36.9; O2SAT 96
[2024-04-21] MEDS: cloZAPine 25 MG TABLET 50 MG PO (20:51)
[2024-04-21] MEDS: HaloperidoL 5 MG TABLET PO (20:52)
[2024-04-21] MEDS: traZODone HCL 50 MG TABLET PO (20:53)
[2024-04-22 08:00] VITALS: BP 164/87; PULSE 82; RESP 16; TEMP 36.9; O2SAT 94
[2024-04-22 08:30] VITALS: BP 164/87; PULSE 82
[2024-04-22] MEDS: Benztropine Mesylate 0.5 MG TABLET PO ×2 (08:30→21:33)
[2024-04-22] MEDS: Propranolol HCL 20 MG TABLET PO ×2 (08:30→21:35)
[2024-04-22] MEDS: metFORMIN HCl ER 500 MG TAB.ER.24H 1000 MG PO ×2 (08:30→21:31)
[2024-04-22] MEDS: Atorvastatin Calcium 10 MG TABLET PO (08:30)
[2024-04-22] MEDS: HaloperidoL 1 MG TABLET 2 MG PO (08:31)
[2024-04-22] MEDS: OLANZapine 5 MG TABLET PO (08:31)
[2024-04-22] MEDS: glipiZIDE XL 10 MG TAB.ER.24 PO ×2 (08:31→21:33)
[2024-04-22] MEDS: Sertraline HCL 100 MG TABLET PO (09:57)
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
[2024-04-22 19:46] LABS: MANUAL DIFF FLAG NO
[2024-04-22 19:55] LABS: Ammonia 42 umol/L (13-55)
[2024-04-22 20:00] VITALS: BP 128/68; PULSE 92; RESP 16; TEMP 37.1; O2SAT 96
[2024-04-22 20:15] LABS: Basophils Absolute Auto 0.1 X10*3/uL (0.0-0.2); Basophils Percent Auto 0.5 % (0-2); Eosinophils Absolute Auto 0.2 X10*3/uL (0.0-0.4); Eosinophils Percent Auto 1.5 % (0-4); Hematocrit 40.2 % (42.0-52.0); Hemoglobin 13.6 g/dl (14.0-18.0); Imm Gran Abs Auto 0.07 X10*3/uL (0.00-0.03); Imm Gran Pct Auto 0.7 % (0.0-0.4); Lymphocytes Absolute Auto 3.9 X10*3/uL (1.2-4.9); Lymphocytes Percent Auto 36.3 % (20-40); Mean Corpuscular HGB Conc 33.8 g/dl (31.0-36.0); Mean Corpuscular Hemoglobin 28.6 pg (27.0-33.0); Mean Corpuscular Volume 84.6 fL (80.0-98.0); Mean Platelet Volume 9.9 fL (9.4-12.4); Monocytes Absolute Auto 0.7 X10*3/uL (0.1-1.2); Monocytes Percent Auto 6.9 % (2-11); Neut%MD 54.1 %; Neutrophils Absolute Auto 5.8 x10*3/uL (2.0-8.3); Neutrophils Percent Auto 54.1 % (45-73); Platelet Count 294 X10*3/uL (160-400); Red Blood Count 4.75 X10*6/uL (4.60-5.80); Red Cell Distribution Width 13.6 % (11.0-16.0); WBCANC 10.7 X10*3/uL; White Blood Count 10.7 X10*3/uL (4.8-10.8)
[2024-04-22] MEDS: cloZAPine 25 MG TABLET 75 MG PO (21:31)
[2024-04-22] MEDS: HaloperidoL 5 MG TABLET PO (21:32)
[2024-04-22] MEDS: traZODone HCL 50 MG TABLET PO (21:32)
[2024-04-23 07:35] VITALS: BP 155/76; PULSE 88; RESP 16; TEMP 37; O2SAT 96
[2024-04-23] MEDS: Propranolol HCL 20 MG TABLET PO ×2 (08:23→20:33)
[2024-04-23] MEDS: glipiZIDE XL 10 MG TAB.ER.24 PO ×2 (08:23→20:34)
[2024-04-23] MEDS: HaloperidoL 1 MG TABLET 2 MG PO (08:24)
[2024-04-23] MEDS: Atorvastatin Calcium 10 MG TABLET PO (08:24)
[2024-04-23] MEDS: metFORMIN HCl ER 500 MG TAB.ER.24H 1000 MG PO ×2 (08:24→20:34)
[2024-04-23] MEDS: Benztropine Mesylate 0.5 MG TABLET PO (08:24)
[2024-04-23] MEDS: Sertraline HCL 100 MG TABLET PO (08:24)
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
[2024-04-23 20:00] VITALS: BP 159/71; PULSE 93; RESP 16; TEMP 36.7; O2SAT 96
[2024-04-23 20:33] VITALS: BP 159/71; PULSE 93
[2024-04-23] MEDS: HaloperidoL 5 MG TABLET PO (20:33)
[2024-04-23] MEDS: Benztropine Mesylate 1 MG TABLET PO (20:33)
[2024-04-23] MEDS: cloZAPine 100 MG TABLET PO (20:34)
[2024-04-23] MEDS: traZODone HCL 50 MG TABLET PO (20:37)
[2024-04-24] MEDS: hydrOXYzine HCL 25 MG TABLET PO (06:41)
[2024-04-24] MEDS: OLANZapine 5 MG TABLET PO (06:41)
[2024-04-24 07:36] VITALS: BP 170/77; PULSE 98; RESP 16; TEMP 37; O2SAT 96
[2024-04-24] MEDS: HaloperidoL 1 MG TABLET 2 MG PO (08:25)
[2024-04-24] MEDS: metFORMIN HCl ER 500 MG TAB.ER.24H 1000 MG PO ×2 (08:25→20:40)
[2024-04-24] MEDS: glipiZIDE XL 10 MG TAB.ER.24 PO ×2 (08:25→20:41)
[2024-04-24] MEDS: Sertraline HCL 100 MG TABLET PO (08:25)
[2024-04-24] MEDS: Atorvastatin Calcium 10 MG TABLET PO (08:25)
[2024-04-24] MEDS: Propranolol HCL 20 MG TABLET PO ×2 (08:26→20:41)
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
[2024-04-24 19:20] VITALS: BP 156/71; PULSE 92; RESP 18; TEMP 36.9; O2SAT 97
[2024-04-24] MEDS: Benztropine Mesylate 1 MG TABLET PO (20:41)
[2024-04-24] MEDS: cloZAPine 25 MG TABLET 125 MG PO (20:41)
[2024-04-24] MEDS: HaloperidoL 5 MG TABLET PO (20:41)
[2024-04-25 07:00] VITALS: BMI 39.8
[2024-04-25 07:35] VITALS: BP 179/101; PULSE 92; RESP 16; TEMP 36.7; O2SAT 97
[2024-04-25] MEDS: Propranolol HCL 20 MG TABLET PO ×2 (08:29→20:22)
[2024-04-25] MEDS: Sertraline HCL 100 MG TABLET PO (08:29)
[2024-04-25] MEDS: glipiZIDE XL 10 MG TAB.ER.24 PO ×2 (08:30→20:22)
[2024-04-25] MEDS: metFORMIN HCl ER 500 MG TAB.ER.24H 1000 MG PO ×2 (08:30→20:22)
[2024-04-25] MEDS: HaloperidoL 1 MG TABLET 2 MG PO (08:30)
[2024-04-25] MEDS: Atorvastatin Calcium 10 MG TABLET PO (08:31)
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
[2024-04-25 16:00] VITALS: BP 168/78; PULSE 84; RESP 20; TEMP 36.6; O2SAT 97
[2024-04-25] MEDS: lisinopriL 10 MG TABLET PO (16:05)
[2024-04-25 16:53] LABS: Clozapine (Clozaril) <10 mcg/L; Norclozapine <10 mcg/L (25-400)
[2024-04-25 18:39] VITALS: BP 131/59; PULSE 84; RESP 20; O2SAT 97
[2024-04-25 19:25] VITALS: BP 156/106; PULSE 84; RESP 18; TEMP 37.4; O2SAT 97
[2024-04-25] MEDS: cloZAPine 100 MG TABLET 150 MG PO (20:21)
[2024-04-25] MEDS: HaloperidoL 5 MG TABLET PO (20:22)
[2024-04-25] MEDS: Benztropine Mesylate 1 MG TABLET PO (20:22)
[2024-04-26 07:30] VITALS: BP 152/77; PULSE 93; RESP 16; TEMP 36.4; O2SAT 97
[2024-04-26 08:26] LABS: Creatinine Clr Calc Pharmacy 141.6; Estimated Glomerular Filt Rate > 60
[2024-04-26 08:44] VITALS: BP 152/77; PULSE 93
[2024-04-26] MEDS: Propranolol HCL 20 MG TABLET PO ×2 (08:44→20:26)
[2024-04-26] MEDS: metFORMIN HCl ER 500 MG TAB.ER.24H 1000 MG PO ×2 (08:44→20:25)
[2024-04-26] MEDS: HaloperidoL 1 MG TABLET 2 MG PO (08:44)
[2024-04-26] MEDS: Atorvastatin Calcium 10 MG TABLET PO (08:44)
[2024-04-26] MEDS: glipiZIDE XL 10 MG TAB.ER.24 PO ×2 (08:44→20:25)
[2024-04-26] MEDS: Sertraline HCL 100 MG TABLET PO (08:45)
[2024-04-26] MEDS: lisinopriL 10 MG TABLET PO (08:45)
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
[2024-04-26 20:15] VITALS: BP 133/80; PULSE 61; RESP 14; TEMP 36.4; O2SAT 100
[2024-04-26] MEDS: cloZAPine 100 MG TABLET PO (20:25)
[2024-04-26] MEDS: cloZAPine 25 MG TABLET 75 MG PO (20:25)
[2024-04-26] MEDS: HaloperidoL 5 MG TABLET PO (20:26)
[2024-04-26] MEDS: Benztropine Mesylate 1 MG TABLET PO (20:26)
[2024-04-27 08:13] LABS: Neut%MD 58.2 %; Neutrophils Absolute Auto 5.3 x10*3/uL (2.0-8.3)
[2024-04-27 08:33] VITALS: BP 143/94; PULSE 113; RESP 18; TEMP 36.5; O2SAT 96
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
[2024-04-27] MEDS: glipiZIDE XL 10 MG TAB.ER.24 PO ×2 (09:11→20:45)
[2024-04-27] MEDS: metFORMIN HCl ER 500 MG TAB.ER.24H 1000 MG PO ×2 (09:11→20:43)
[2024-04-27] MEDS: Sertraline HCL 100 MG TABLET PO (09:11)
[2024-04-27] MEDS: Propranolol HCL 20 MG TABLET PO ×2 (09:12→20:45)
[2024-04-27] MEDS: Atorvastatin Calcium 10 MG TABLET PO (09:12)
[2024-04-27] MEDS: lisinopriL 10 MG TABLET PO (09:12)
[2024-04-27] MEDS: HaloperidoL 1 MG TABLET 2 MG PO (09:12)
[2024-04-27 19:57] VITALS: BP 113/59; PULSE 80; RESP 16; TEMP 37; O2SAT 97
[2024-04-27] MEDS: cloZAPine 25 MG TABLET 75 MG PO (20:44)
[2024-04-27] MEDS: HaloperidoL 5 MG TABLET PO (20:45)
[2024-04-27] MEDS: cloZAPine 100 MG TABLET PO (20:45)
[2024-04-27] MEDS: Benztropine Mesylate 1 MG TABLET PO (20:45)
[2024-04-28 08:27] VITALS: BP 161/75; PULSE 102; RESP 14; TEMP 36.5; O2SAT 95
[2024-04-28] MEDS: Propranolol HCL 20 MG TABLET PO ×2 (09:09→20:19)
[2024-04-28] MEDS: lisinopriL 10 MG TABLET PO (09:09)
[2024-04-28] MEDS: Sertraline HCL 100 MG TABLET PO (09:09)
[2024-04-28] MEDS: HaloperidoL 1 MG TABLET 2 MG PO (09:09)
[2024-04-28] MEDS: glipiZIDE XL 10 MG TAB.ER.24 PO ×2 (09:09→20:19)
[2024-04-28] MEDS: metFORMIN HCl ER 500 MG TAB.ER.24H 1000 MG PO ×2 (09:09→20:18)
[2024-04-28] MEDS: Atorvastatin Calcium 10 MG TABLET PO (09:09)
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
[2024-04-28 20:00] VITALS: BP 141/90; PULSE 93; RESP 18; TEMP 36.7; O2SAT 96
[2024-04-28] MEDS: cloZAPine 25 MG TABLET 75 MG PO (20:18)
[2024-04-28] MEDS: Benztropine Mesylate 1 MG TABLET PO (20:18)
[2024-04-28] MEDS: HaloperidoL 5 MG TABLET PO (20:18)
[2024-04-28] MEDS: cloZAPine 100 MG TABLET PO (20:18)
[2024-04-29 07:45] VITALS: BP 145/75; PULSE 99; RESP 16; TEMP 36.4; O2SAT 96
[2024-04-29 09:02] VITALS: BP 160/85; PULSE 106
[2024-04-29] MEDS: HaloperidoL 1 MG TABLET 2 MG PO (09:04)
[2024-04-29] MEDS: metFORMIN HCl ER 500 MG TAB.ER.24H 1000 MG PO ×2 (09:04→20:45)
[2024-04-29] MEDS: Propranolol HCL 20 MG TABLET PO ×2 (09:05→20:45)
[2024-04-29] MEDS: glipiZIDE XL 10 MG TAB.ER.24 PO ×2 (09:05→20:45)
[2024-04-29] MEDS: lisinopriL 10 MG TABLET PO (09:05)
[2024-04-29] MEDS: Atorvastatin Calcium 10 MG TABLET PO (09:05)
[2024-04-29] MEDS: Sertraline HCL 100 MG TABLET PO (09:05)
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
[2024-04-29 16:24] LABS: MANUAL DIFF FLAG NO
[2024-04-29 16:28] LABS: Basophils Percent Auto 0.3 % (0-2); Eosinophils Absolute Auto 0.2 X10*3/uL (0.0-0.4); Eosinophils Percent Auto 1.6 % (0-4); Hematocrit 37.7 % (42.0-52.0); Hemoglobin 12.7 g/dl (14.0-18.0); Imm Gran Abs Auto 0.07 X10*3/uL (0.00-0.03); Imm Gran Pct Auto 0.7 % (0.0-0.4); Lymphocytes Absolute Auto 3.1 X10*3/uL (1.2-4.9); Lymphocytes Percent Auto 29.5 % (20-40); Mean Corpuscular HGB Conc 33.7 g/dl (31.0-36.0); Mean Corpuscular Hemoglobin 28.7 pg (27.0-33.0); Mean Corpuscular Volume 85.3 fL (80.0-98.0); Mean Platelet Volume 9.5 fL (9.4-12.4); Monocytes Absolute Auto 0.7 X10*3/uL (0.1-1.2); Monocytes Percent Auto 6.8 % (2-11); Neutrophils Absolute Auto 6.4 x10*3/uL (2.0-8.3); Neutrophils Percent Auto 61.1 % (45-73); Platelet Count 280 X10*3/uL (160-400); Red Blood Count 4.42 X10*6/uL (4.60-5.80); Red Cell Distribution Width 13.3 % (11.0-16.0); White Blood Count 10.5 X10*3/uL (4.8-10.8)
[2024-04-29 20:00] VITALS: BP 132/68; PULSE 99; RESP 16; TEMP 37.4; O2SAT 96
[2024-04-29] MEDS: HaloperidoL 5 MG TABLET PO (20:45)
[2024-04-29] MEDS: cloZAPine 100 MG TABLET PO (20:45)
[2024-04-29] MEDS: cloZAPine 25 MG TABLET 75 MG PO (20:45)
[2024-04-29] MEDS: Benztropine Mesylate 1 MG TABLET PO (20:45)
[2024-04-30 07:57] VITALS: BP 140/70; PULSE 94; RESP 14; TEMP 36.7; O2SAT 97
[2024-04-30] MEDS: HaloperidoL 1 MG TABLET 2 MG PO (08:12)
[2024-04-30] MEDS: metFORMIN HCl ER 500 MG TAB.ER.24H 1000 MG PO (08:12)
[2024-04-30] MEDS: glipiZIDE XL 10 MG TAB.ER.24 PO (08:12)
[2024-04-30] MEDS: Sertraline HCL 100 MG TABLET PO (08:12)
[2024-04-30] MEDS: Atorvastatin Calcium 10 MG TABLET PO (08:12)
[2024-04-30] MEDS: lisinopriL 10 MG TABLET PO (08:12)
[2024-04-30] MEDS: Propranolol HCL 20 MG TABLET PO (08:13)
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
== END 2024-04-30 13:20 | disposition home or self-care (01) | DRG 750 ==
LOC: HO.ED 11:38 → HO.PADLT16 16:07
PROVIDERS: Physician Assistant Medical; Admitting Provider Psychiatry & Neurology Psychiatry; Emergency Provider Emergency Medicine; Responsible Provider Registered Nurse; Visit Provider Psychiatry & Neurology Psychiatry
DX: F20.1 Disorganized schizophrenia (principal); R45.850 Homicidal ideations; E11.9 Type 2 diabetes mellitus without complications; F17.210 Nicotine dependence, cigarettes, uncomplicated; Z23 Encounter for immunization; Z71.6 Tobacco abuse counseling; Z79.84 Long term (current) use of oral hypoglycemic drugs; Z79.899 Other long term (current) drug therapy
CPT/HCPCS: 36415; 80048; 80053; 80061; 80159; 80307; 82140; 82550; 82565; 82607; 82746; 83036; 84439; 84443; 85025; 85027; 85048; 87086; 87147; 90656; 93005; 99285; J2060; J2359; S9485

== ENCOUNTER → 2024-04-19 13:36 | Outpatient (BNV) | payer OTHER, SELFPAY | PROVIDERS: Admitting Provider Psychiatry & Neurology Psychiatry; Emergency Provider Emergency Medicine; Visit Provider Internal Medicine | DX: I45.2 Bifascicular block (principal) | CPT/HCPCS: 93010 ==

== ENCOUNTER → 2024-04-19 15:45 | Outpatient (BNV) | payer OTHER, SELFPAY | PROVIDERS: Admitting Provider Psychiatry & Neurology Psychiatry; Emergency Provider Emergency Medicine; Visit Provider Registered Nurse | DX: F20.1 Disorganized schizophrenia (principal); R45.850 Homicidal ideations | CPT/HCPCS: 90792; 99231; 99232; 99238 ==